=== PATIENT | male | born 1940 | race Caucasian/White ===

== ENCOUNTER 2016-07-31 08:16 | Outpatient (CLI) | payer MEDICARE ==
[2016-07-31 12:17] LABS: CALCIUM 9.2 mg/dL (8.5-10.3); CREATININE 0.7 mg/dL (0.6-1.2); POTASSIUM 4.4 mmol/L (3.5-5.0)
== END 2016-07-31 08:17 | disposition home or self-care (01) ==
LOC: LAB.F 08:16
PROVIDERS: ATTEND Internal Medicine
DX: I10 Essential (primary) hypertension (principal)
CPT/HCPCS: 36415; 80048

== ENCOUNTER 2016-11-14 08:24 | Outpatient (CLI) | payer MEDICARE ==
[2016-11-14 18:02] LABS: CALCIUM 8.9 mg/dL (8.5-10.3); CREATININE 0.9 mg/dL (0.6-1.2); POTASSIUM 4.5 mmol/L (3.5-5.0)
[2016-11-14 18:07] LABS: HEMOGLOBIN A1C 0.69 g/dL
== END 2016-11-14 08:25 | disposition home or self-care (01) ==
LOC: LAB.F 08:24
PROVIDERS: ATTEND Internal Medicine
DX: I10 Essential (primary) hypertension (principal); R73.9 Hyperglycemia, unspecified
CPT/HCPCS: 36415; 80048; 83036

== ENCOUNTER 2017-01-31 11:07 | Day surgery (SDC) | payer MEDICARE ==
[2017-01-31] MEDS ORDERED: LACTATED RINGERS 1,000 ML IV ONE ×2 (11:32→13:56)
[2017-01-31] MEDS ORDERED: fentaNYL 100 MCG/2 ML VIAL IVP ONE (13:28)
[2017-01-31] MEDS ORDERED: MIDAZOLAM 2 MG/2 ML VIAL IVP ONE (13:28)
[2017-01-31 15:02] VITALS: BP 129/63
== END 2017-01-31 11:08 | disposition home or self-care (01) ==
LOC: SDS 11:07
PROVIDERS: ATTEND Surgery
PROC: 0DBK8ZX Excision of Ascending Colon, Via Natural or Artificial Opening Endoscopic, Diagnostic (ICD-10-PCS; principal; 2017-01-31 12:45)
DX: Z12.11 Encounter for screening for malignant neoplasm of colon (principal); D12.2 Benign neoplasm of ascending colon; K57.30 Diverticulosis of large intestine without perforation or abscess without bleeding; Z83.71 Family history of colonic polyps; K64.8 Other hemorrhoids; I10 Essential (primary) hypertension; R73.03 Prediabetes; Z85.51 Personal history of malignant neoplasm of bladder; E78.00 Pure hypercholesterolemia, unspecified; F17.210 Nicotine dependence, cigarettes, uncomplicated
CPT/HCPCS: 45380; J7120

== ENCOUNTER 2017-02-13 08:34 | Outpatient (CLI) | payer MEDICARE | END 2017-02-13 08:35 | disposition home or self-care (01) | LOC: LAB.F 08:34 | PROVIDERS: ATTEND Physician Assistant Medical | DX: R73.01 Impaired fasting glucose (principal); R73.03 Prediabetes ==

== ENCOUNTER 2017-02-13 10:11 | Outpatient (CLI) | payer MEDICARE ==
--- NOTE | 2017-02-14 11:42 | XRAY Report ---
DATE OF SERVICE: 02/13/2017 TWO VIEW CHEST: 02/13/2017 COMPARISON: Frontal chest 12/25/2010. INDICATION: Nicotine addiction. Weight loss. TECHNIQUE: Two views of the chest. FINDINGS There are large lung volumes with flattening of the diaphragms. There is eventration of the right diaphragm. The lungs appear otherwise clear. No pneumothorax or pleural effusion. Mediastinum unremarkable. IMPRESSION: CHRONIC OBSTRUCTIVE PULMONARY DISEASE. NO EVIDENCE OF ACUTE THORACIC PROCESS IN OTHER REGARDS. TD: 02/13/2017 14:32 [email or web address]
== END 2017-02-13 10:12 | disposition home or self-care (01) ==
LOC: DI 10:11
PROVIDERS: ATTEND Physician Assistant Medical
DX: J44.9 Chronic obstructive pulmonary disease, unspecified (principal); R63.4 Abnormal weight loss; R73.01 Impaired fasting glucose; R73.03 Prediabetes
CPT/HCPCS: 71046

== ENCOUNTER 2017-02-14 07:09 | Outpatient (CLI) | payer MEDICARE ==
[2017-02-14 10:23] LABS: ALBUMIN 4.2 g/dL (3.2-5.5); ALBUMIN/GLOBULIN RATIO 1.7 (1.0-2.2); BILIRUBIN,TOTAL 0.9 mg/dL (0.2-1.0); CALCIUM 8.9 mg/dL (8.5-10.3); CREATININE 0.8 mg/dL (0.6-1.2); TOTAL PROTEIN 6.7 g/dL (6.7-8.2)
[2017-02-14 10:33] LABS: BASOPHILS % (AUTO) 0.5 %; EOSINOPHILS # (AUTO) 0.1 10^3/uL (0.0-0.7); EOSINOPHILS % (AUTO) 1.6 %; HGB - HEMOGLOBIN 14.9 g/dL (14.0-18.0); LYMPHOCYTES # (AUTO) 1.6 10^3/uL (1.5-3.5); LYMPHOCYTES % (AUTO) 23.1 %; MEAN CORPUSCULAR HEMOGLOBIN 32.2 pg (27.0-31.0); MEAN CORPUSCULAR HGB CONC 34.2 g/dL (32.0-36.0); MEAN CORPUSCULAR VOLUME 94.2 fL (80.0-94.0); MEAN PLATELET VOLUME 7.7 fL (7.4-11.4); MONOCYTES # (AUTO) 0.7 10^3/uL (0.0-1.0); MONOCYTES % (AUTO) 10.7 %; NEUTROPHILS # (AUTO) 4.4 10^3/uL (1.5-6.6); NEUTROPHILS % (AUTO) 64.1 %; PLT - PLATELET COUNT 233 10^3/uL (130-450); RED BLOOD COUNT 4.62 10^6/uL (4.70-6.10); RED CELL DISTRIBUTION WIDTH 13.8 % (12.0-15.0); WHITE BLOOD COUNT 6.9 x10^3/uL (4.8-10.8)
[2017-02-14 11:17] LABS: HB2 TOTAL 16.4 g/dL; HEMOGLOBIN A1C 0.67 g/dL; HEMOGLOBIN A1C % 5.9 % (4.6-6.2)
== END 2017-02-14 07:10 | disposition home or self-care (01) ==
LOC: LAB.F 07:09
PROVIDERS: ATTEND Physician Assistant Medical
DX: R73.01 Impaired fasting glucose (principal); R73.03 Prediabetes
CPT/HCPCS: 36415; 80053; 83036; 85025

== ENCOUNTER 2017-12-04 07:05 | Outpatient (CLI) | payer MEDICARE | END 2017-12-04 07:06 | disposition home or self-care (01) | LOC: LAB.F 07:05 | PROVIDERS: ATTEND Physician Assistant Medical | DX: Z12.5 Encounter for screening for malignant neoplasm of prostate (principal) | CPT/HCPCS: 36415; G0103; 84153 ==

== ENCOUNTER 2018-02-28 07:30 | Outpatient (CLI) | payer MEDICARE ==
[2018-02-28 10:29] LABS: HGB - HEMOGLOBIN 15.1 g/dL (14.0-18.0); MEAN CORPUSCULAR HEMOGLOBIN 32.4 pg (27.0-31.0); MEAN CORPUSCULAR HGB CONC 34.3 g/dL (32.0-36.0); MEAN CORPUSCULAR VOLUME 94.5 fL (80.0-94.0); MEAN PLATELET VOLUME 7.8 fL (7.4-11.4); RED BLOOD COUNT 4.67 10^6/uL (4.70-6.10); RED CELL DISTRIBUTION WIDTH 14.1 % (12.0-15.0)
[2018-02-28 11:05] LABS: BUN - BLOOD UREA NITROGEN 16 mg/dL (6-20); CARBON DIOXIDE - CO2 33 mmol/L (21-32); CHLORIDE 99 mmol/L (101-111); CHOL/HDL RATIO 2.8 (<5.0); CHOLESTEROL 163 mg/dL; CREATININE 0.8 mg/dL (0.6-1.2); GFR - MDRD 93 (>89); GLUCOSE 138 mg/dL (70-100); HDL CHOLESTEROL 59 mg/dL; LDL CHOLESTEROL,CALCULATED 92 mg/dL; LDL/HDL RATIO 1.6 (<3.6); SODIUM 137 mmol/L (135-145); VLDL CHOLESTEROL 12 mg/dL
[2018-02-28 11:27] LABS: HB2 TOTAL 15.7 g/dL; HEMOGLOBIN A1C 0.73 g/dL; HEMOGLOBIN A1C % 6.4 % (4.6-6.2)
== END 2018-02-28 07:31 | disposition home or self-care (01) ==
LOC: LAB.F 07:30
PROVIDERS: ATTEND Physician Assistant Medical
DX: I10 Essential (primary) hypertension (principal); E78.00 Pure hypercholesterolemia, unspecified; R73.03 Prediabetes
CPT/HCPCS: 36415; 80048; 80061; 83036; 83721; 85025; 85027

== ENCOUNTER 2018-04-04 09:30 | Outpatient (CLI) | payer MEDICARE | END 2018-04-04 09:31 | disposition home or self-care (01) | LOC: NS 09:30 | PROVIDERS: ATTEND Physician Assistant Medical | DX: Z71.3 Dietary counseling and surveillance (principal); E11.9 Type 2 diabetes mellitus without complications | CPT/HCPCS: 97802 ==

== ENCOUNTER 2018-06-13 09:41 | Outpatient (CLI) | payer MEDICARE | END 2018-06-13 09:42 | disposition home or self-care (01) | LOC: NS 09:41 | PROVIDERS: ATTEND Physician Assistant Medical | DX: Z71.3 Dietary counseling and surveillance (principal); E11.9 Type 2 diabetes mellitus without complications | CPT/HCPCS: 97803 ==

== ENCOUNTER 2018-07-14 07:51 | Outpatient (CLI) | payer MEDICARE ==
[2018-07-14 10:58] LABS: CALCIUM 9.2 mg/dL (8.5-10.3); CREATININE 0.7 mg/dL (0.6-1.2)
[2018-07-14 11:15] LABS: HB2 TOTAL 15.7 g/dL; HEMOGLOBIN A1C 0.64 g/dL; HEMOGLOBIN A1C % 5.9 % (4.6-6.2)
== END 2018-07-14 07:52 | disposition home or self-care (01) ==
LOC: LAB.F 07:51
PROVIDERS: ATTEND Physician Assistant Medical
DX: E11.9 Type 2 diabetes mellitus without complications (principal)
CPT/HCPCS: 36415; 80048; 83036

== ENCOUNTER 2018-08-04 14:33 | Outpatient (CLI) | payer MEDICARE ==
[2018-08-04 18:03] LABS: BILIRUBIN,URINE NEGATIVE (NEGATIVE); GLUCOSE, URINE (UA) NEGATIVE (NEGATIVE); KETONES,URINE (UA) NEGATIVE (NEGATIVE); LEUKOCYTE ESTERASE, URINE TRACE (NEGATIVE); NITRITE,URINE NEGATIVE (NEGATIVE); OCCULT BLOOD,URINE TRACE-INTA (NEGATIVE); PH,URINE 7.5 PH (5.0-7.5); PROTEIN,URINE NEGATIVE (NEGATIVE); UROBILINOGEN,URINE 0.2 (NORMAL) E.U./dL (NORMAL)
[2018-08-04 18:12] LABS: BACTERIA,URINE Rare /HPF (None Seen); CLARITY,URINE HAZY (CLEAR); SQUAMOUS EPITHELIAL CELL,UR NONE SEEN (<= Few)
== END 2018-08-04 14:34 | disposition home or self-care (01) ==
LOC: LAB.F 14:33
PROVIDERS: ATTEND Urology
DX: R30.0 Dysuria (principal)
CPT/HCPCS: 81001; 87077; 87086; 87181

== ENCOUNTER 2019-08-03 07:32 | Outpatient (CLI) | payer MEDICARE ==
[2019-08-03 15:36] LABS: BASOPHILS # (AUTO) 0.1 10^3/uL (0.0-0.1); EOSINOPHILS # (AUTO) 0.2 10^3/uL (0.0-0.7); EOSINOPHILS % (AUTO) 4.6 %; HGB - HEMOGLOBIN 14.4 g/dL (14.0-18.0); LYMPHOCYTES # (AUTO) 1.7 10^3/uL (1.5-3.5); LYMPHOCYTES % (AUTO) 33.7 %; MEAN CORPUSCULAR HEMOGLOBIN 31.6 pg (27.0-31.0); MEAN CORPUSCULAR HGB CONC 32.1 g/dL (32.0-36.0); MEAN CORPUSCULAR VOLUME 98.2 fL (80.0-94.0); MEAN PLATELET VOLUME 9.3 fL (7.4-11.4); MONOCYTES # (AUTO) 0.6 10^3/uL (0.0-1.0); MONOCYTES % (AUTO) 12.8 %; NEUTROPHILS # (AUTO) 2.4 10^3/uL (1.5-6.6); NEUTROPHILS % (AUTO) 47.5 %; PLT - PLATELET COUNT 229 10^3/uL (130-450); RED BLOOD COUNT 4.56 10^6/uL (4.70-6.10); RED CELL DISTRIBUTION WIDTH 13.3 % (12.0-15.0)
[2019-08-03 15:52] LABS: HB2 TOTAL 14.9 g/dL; HEMOGLOBIN A1C 0.6 g/dL; HEMOGLOBIN A1C % 5.8 % (4.6-6.2)
[2019-08-03 15:55] LABS: ALBUMIN/GLOBULIN RATIO 1.5 (1.0-2.2); BILIRUBIN,TOTAL 0.9 mg/dL (0.2-1.0); CALCIUM 8.9 mg/dL (8.5-10.3); CREATININE 0.7 mg/dL (0.6-1.2); TOTAL PROTEIN 6.7 g/dL (6.7-8.2)
== END 2019-08-03 07:33 | disposition home or self-care (01) ==
LOC: LAB.S 07:32
PROVIDERS: ATTEND Physician Assistant
DX: I10 Essential (primary) hypertension (principal); E11.9 Type 2 diabetes mellitus without complications
CPT/HCPCS: 36415; 80053; 82043; 83036; 85025

== ENCOUNTER → 2019-08-26 | Outpatient (CLI) | payer MEDICARE | LOC: LAB.WCP 08:00 | PROVIDERS: ATTEND Physician Assistant | DX: R31.9 Hematuria, unspecified (principal) | CPT/HCPCS: 81002 ==

== ENCOUNTER 2020-08-03 07:58 | Outpatient (CLI) | payer MEDICARE ==
[2020-08-03 14:55] LABS: BASOPHILS % (AUTO) 0.4 %; EOSINOPHILS # (AUTO) 0.3 10^3/uL (0.0-0.7); EOSINOPHILS % (AUTO) 4.8 %; HCT - HEMATOCRIT 45.5 % (42.0-52.0); HGB - HEMOGLOBIN 14.9 g/dL (14.0-18.0); LYMPHOCYTES # (AUTO) 1.6 10^3/uL (1.5-3.5); LYMPHOCYTES % (AUTO) 29.2 %; MEAN CORPUSCULAR HEMOGLOBIN 32.7 pg (27.0-31.0); MEAN CORPUSCULAR HGB CONC 32.7 g/dL (32.0-36.0); MEAN PLATELET VOLUME 9.4 fL (7.4-11.4); MONOCYTES # (AUTO) 0.7 10^3/uL (0.0-1.0); MONOCYTES % (AUTO) 12.2 %; NEUTROPHILS # (AUTO) 2.9 10^3/uL (1.5-6.6); NEUTROPHILS % (AUTO) 53.2 %; PLT - PLATELET COUNT 210 10^3/uL (130-450); RED BLOOD COUNT 4.55 10^6/uL (4.70-6.10); RED CELL DISTRIBUTION WIDTH 13.2 % (12.0-15.0); WHITE BLOOD COUNT 5.4 x10^3/uL (4.8-10.8)
[2020-08-03 15:29] LABS: CREATININE,URINE 51.3 mg/dL; MICROALBUM/CREATININE RATIO,UR 23.4 ug/mg (<30.0); MICROALBUMIN,URINE 1.2 mg/dL (0-300.0)
[2020-08-03 15:46] LABS: ALBUMIN 3.9 g/dL (3.2-5.5); ALBUMIN/GLOBULIN RATIO 1.5 (1.0-2.2); ALKALINE PHOSPHATASE 46 IU/L (42-121); ALT ALANINE AMINOTRANSFERASE 15 IU/L (10-60); AST ASPARTATE AMINOTRANSFERASE 15 IU/L (10-42); BILIRUBIN,TOTAL 1.2 mg/dL (0.2-1.0); BUN - BLOOD UREA NITROGEN 16 mg/dL (6-20); CALCIUM 8.9 mg/dL (8.5-10.3); CARBON DIOXIDE - CO2 33 mmol/L (21-32); CHLORIDE 99 mmol/L (101-111); CHOL/HDL RATIO 3.1 (<5.0); CHOLESTEROL 171 mg/dL; CREATININE 0.8 mg/dL (0.6-1.2); GFR - MDRD 93 (>89); GLUCOSE 139 mg/dL (70-100); HDL CHOLESTEROL 56 mg/dL; LDL CHOLESTEROL,CALCULATED 103 mg/dL; LDL/HDL RATIO 1.8 (<3.6); POTASSIUM 4.1 mmol/L (3.5-5.0); SODIUM 139 mmol/L (135-145); TOTAL PROTEIN 6.5 g/dL (6.7-8.2); TRIGLYCERIDES 60 mg/dL; VLDL CHOLESTEROL 12 mg/dL
[2020-08-03 16:37] LABS: ESTIMATED AVERAGE GLUCOSE 131 mg/dL (70-100); HEMOGLOBIN A1c% 6.2 % (4.27-6.07)
== END 2020-08-03 07:59 | disposition home or self-care (01) ==
LOC: LAB.S 07:58
PROVIDERS: ATTEND Physician Assistant
DX: E11.9 Type 2 diabetes mellitus without complications (principal); I10 Essential (primary) hypertension; E78.00 Pure hypercholesterolemia, unspecified
CPT/HCPCS: 36415; 80053; 80061; 82043; 82570; 83036; 83721; 85025

== ENCOUNTER 2020-09-23 17:03 | Inpatient (IN) | payer MEDICARE ==
[~2020-09-23 17:03] MED LIST: methylPREDNISolone SUCCINATE 40 MG/ML VIAL IVP SCH
[2020-09-23] MEDS ORDERED: IPRATROPIUM/ALBUTEROL 3 ML NEB INH STA (17:48)
--- NOTE | 2020-09-23 17:49 | ED Physician Documentation ---
History of Present Illness - Stated complaint Stated Complaint: SWOLLEN LEGS - Chief complaint Chief Complaint: General - History obtained from History obtained from: Patient - Additonal information Additional information: 79-year-old gentleman with history of heart murmur, long history of tobacco use but states no known history of COPD presents with 4 months worth of shortness of breath which was acutely worse today and noted pedal edema today. He was not aware that he was running a fever. He has had both Covid shots. Review of Systems Ten Systems: 10 systems reviewed and negative Constitutional: reports: Reviewed and negative Ears: reports: Reviewed and negative Nose: reports: Reviewed and negative Throat: reports: Reviewed and negative Cardiac: reports: Reviewed and negative PD PAST MEDICAL HISTORY - Past Medical History Cardiovascular: Hypertension Respiratory: None Endocrine/Autoimmune: None GI: None : Other HEENT: Macular degeneration Psych: None Musculoskeletal: None Derm: None - Past Surgical History General: Colonoscopy, Other Ortho: Knee replacement Derm: Skin cancer surgery - Present Medications Home Medications: Ambulatory Orders Medication Instructions Recorded Confirmed Chlorthalidone 12.5 mg ORAL DAILY 04/30/14 01/31/17 Losartan [Cozaar] 100 mg ORAL DAILY 04/30/14 01/31/17 Nortriptyline [Pamelor] 50 mg PO HS 09/09/14 01/31/17 Tamsulosin [Flomax] 0.4 mg PO DAILY 09/09/14 01/31/17 Acetaminophen [Tylenol] 650 mg PO Q6H PRN 09/13/14 01/31/17 Ibuprofen [Motrin] 400 mg PO Q6H PRN 09/13/14 01/30/17 Ascorbic Acid [Vitamin C] 1,000 mg PO DAILY 01/30/17 01/31/17 Cholecalciferol (Vitamin D3) 1,000 unit PO DAILY 01/30/17 01/31/17 [Vitamin D3] Multivitamin/Ferrous Sulfate 18 mg PO DAILY 01/30/17 01/31/17 [One-Daily Oucch-Cos-Lvue Tab] - Allergies Allergies/Adverse Reactions: Allergies Allergy/AdvReac Type Severity Reaction Status Date / Time No Known Drug Allergies Allergy Verified 09/23/20 17:40 PD ED PE NORMAL - Vitals Vital signs reviewed: Yes - General General: Alert and oriented X 3, Other (Labored breathing, tachypneic and quite hypoxic on room air which resolves on a nonrebreather.) - HEENT HEENT: PERRL, EOMI - Neck Neck: Supple, no meningeal sign, No bony TTP - Cardiac Cardiac: RRR, No murmur, Other (No obvious heart murmur, he says he has 1 but may be obscured by labored breathing.) - Respiratory Respiratory: Other (Absent breath sounds at the left base, expiratory wheezes in left upper lobe and on the right) - Abdomen Abdomen: Normal bowel sounds, Soft, Non tender - Back Back: No CVA TTP, No spinal TTP - Derm Derm: Normal color, Warm and dry - Extremities Extremities: No calf tenderness / cord, Other (2+ bilateral pitting pedal edema) - Neuro Neuro: Alert and oriented X 3, Normal speech Results - Vitals Vitals: Vital Signs - 24 hr 09/23/20 09/23/20 09/23/20 17:28 17:59 18:05 Temperature 100.4 C H Heart Rate 68 82 88 Respiratory 20 23 20 Rate Blood Pressure 147/66 H 147/70 H O2 Saturation 59 L 100 09/23/20 09/23/20 18:47 19:29 Temperature 38 C H Heart Rate 78 81 Respiratory 24 26 H Rate Blood Pressure 144/92 H 139/78 H O2 Saturation 99 100 Oxygen O2 Source neb tx - EKG (time done) 1832 Rate: Rate (enter#) (77) Rhythm: NSR Intervals: RBBB, Other (lafb) QRS: Normal Ischemia: Normal ST segments Computer interpretation: Agree with computer - Labs Labs: Laboratory Tests 09/23/20 09/23/20 09/23/20 17:52 17:52 17:52 WBC 7.1 RBC 4.47 L Hgb 14.7 Hct 46.0 MCV 102.9 H MCH 32.9 H MCHC 32.0 RDW 13.8 Plt Count 192 MPV 8.6 Neut # (Auto) 5.4 Lymph # (Auto) 0.9 L Iroquois # (Auto) 0.7 Eos # (Auto) 0.0 Baso # (Auto) 0.0 Absolute Nucleated RBC 0.00 Nucleated RBC % 0.0 D-Dimer 203.5 Sodium Potassium Chloride Carbon Dioxide Anion Gap BUN Creatinine Estimated GFR (MDRD) Glucose Calcium Total Bilirubin AST ALT Alkaline Phosphatase Troponin I High Sens B-Natriuretic Peptide 528 H Total Protein Albumin Globulin Albumin/Globulin Ratio Lipase Nasal Adenovirus (PCR) Nasal B. parapertussis DNA (PCR) Nasal Coronavir 229E PCR Nasal Coronavir HKU1 PCR Nasal Coronavir NL63 PCR Nasal Coronavir OC43 PCR Nasal Enterovir/Rhinovir PCR Nasal Influenza B PCR Nasal Influenza A PCR Nasal Parainfluen 1 PCR Nasal Parainfluen 2 PCR Nasal Parainfluen 3 PCR Nasal Parainfluen 4 PCR Nasal RSV (PCR) Nasal B.pertussis DNA PCR Nasal C.pneumoniae (PCR) Juan Ramon Human Metapneumo PCR Nasal M.pneumoniae (PCR) Nasal SARS-CoV-2 (PCR) 09/23/20 09/23/20 09/23/20 17:52 17:52 18:00 WBC RBC Hgb Hct MCV MCH MCHC RDW Plt Count MPV Neut # (Auto) Lymph # (Auto) Iroquois # (Auto) Eos # (Auto) Baso # (Auto) Absolute Nucleated RBC Nucleated RBC % D-Dimer Sodium 141 Potassium 4.2 Chloride 98 L Carbon Dioxide 34 H Anion Gap 9.0 BUN 23 H Creatinine 0.8 Estimated GFR (MDRD) 93 Glucose 147 H Calcium 8.8 Total Bilirubin 1.0 AST 15 ALT 17 Alkaline Phosphatase 58 Troponin I High Sens 21.3 H* B-Natriuretic Peptide Total Protein 6.6 L Albumin 3.9 Globulin 2.7 Albumin/Globulin Ratio 1.4 Lipase 16 L Nasal Adenovirus (PCR) NOT DETECTED Nasal B. parapertussis DNA (PCR) NOT DETECTED Nasal Coronavir 229E PCR NOT DETECTED Nasal Coronavir HKU1 PCR NOT DETECTED Nasal Coronavir NL63 PCR NOT DETECTED Nasal Coronavir OC43 PCR NOT DETECTED Nasal Enterovir/Rhinovir PCR NOT DETECTED Nasal Influenza B PCR NOT DETECTED Nasal Influenza A PCR NOT DETECTED Nasal Parainfluen 1 PCR NOT DETECTED Nasal Parainfluen 2 PCR NOT DETECTED Nasal Parainfluen 3 PCR NOT DETECTED Nasal Parainfluen 4 PCR NOT DETECTED Nasal RSV (PCR) NOT DETECTED Nasal B.pertussis DNA PCR NOT DETECTED Nasal C.pneumoniae (PCR) NOT DETECTED Juan Ramon Human Metapneumo PCR NOT DETECTED Nasal M.pneumoniae (PCR) NOT DETECTED Nasal SARS-CoV-2 (PCR) NOT DETECTED - Rads (name of study) 1v chest Radiology: EMP read contemporaneously (NAD) PD MEDICAL DECISION MAKING - ED course ED course: 79-year-old gentleman with no prior diagnosis of COPD but longstanding smoker presents with shortness of breath and profound hypoxemia down to 59% on room air. Lungs sound like COPD versus pneumonia. Chest x-ray fairly clear but he does seem somewhat dry. He became febrile during his stay but he felt better after nebs here. Spoke with Dr. Castle for admission at 7:46 PM. Given the fever we will go ahead and culture him and give him Rocephin and Zithromax for community-acquired pneumonia versus COPD flare with fever. - Critical Care Time(min): 35 Time Includes: Direct patient care, Review records, Reassess patient, Document care, Coordinate care, Medical consult Data interpretation: Labs, Pulse ox Procedures included in critical care time: Peripheral IV Procedures excluded from critical care time: EKG Departure - Departure Disposition: 66 [facility] DC/Xfer Clinical Impression: COPD exacerbation, Hypoxemia Condition: Serious
[2020-09-23 17:59] LABS: BASOPHILS % (AUTO) 0.4 %; EOSINOPHILS % (AUTO) 0.1 %; HGB - HEMOGLOBIN 14.7 g/dL (14.0-18.0); LYMPHOCYTES # (AUTO) 0.9 10^3/uL (1.5-3.5); LYMPHOCYTES % (AUTO) 12.1 %; MEAN CORPUSCULAR HEMOGLOBIN 32.9 pg (27.0-31.0); MEAN CORPUSCULAR VOLUME 102.9 fL (80.0-94.0); MEAN PLATELET VOLUME 8.6 fL (7.4-11.4); MONOCYTES # (AUTO) 0.7 10^3/uL (0.0-1.0); MONOCYTES % (AUTO) 9.9 %; NEUTROPHILS # (AUTO) 5.4 10^3/uL (1.5-6.6); NEUTROPHILS % (AUTO) 76.7 %; PLT - PLATELET COUNT 192 10^3/uL (130-450); RED BLOOD COUNT 4.47 10^6/uL (4.70-6.10); RED CELL DISTRIBUTION WIDTH 13.8 % (12.0-15.0); WHITE BLOOD COUNT 7.1 x10^3/uL (4.8-10.8)
[2020-09-23 18:12] LABS: ALBUMIN 3.9 g/dL (3.2-5.5); ALBUMIN/GLOBULIN RATIO 1.4 (1.0-2.2); CALCIUM 8.8 mg/dL (8.5-10.3); CREATININE 0.8 mg/dL (0.6-1.2); POTASSIUM 4.2 mmol/L (3.5-5.0); TOTAL PROTEIN 6.6 g/dL (6.7-8.2)
--- NOTE | 2020-09-23 18:25 | XRAY Report ---
PROCEDURE: Chest 1 View X-Ray INDICATIONS: Chest Pain TECHNIQUE: One view of the chest was acquired. COMPARISON: 02/13/2017 FINDINGS: Surgical changes and devices: None. Lungs and pleura: No pleural effusions or pneumothorax. Calcified granuloma in the right lung apex a gain noted. Mediastinum: Mediastinal contours appear normal. Heart size is normal. Bones and chest wall: No suspicious bony lesions. Overlying soft tissues appear unremarkable. IMPRESSION: No acute cardiopulmonary process demonstrated radiographically. Reviewed by: Shiraz Stevenson MD on 09/23/2020 6:24 PM PDT Approved by: Shiraz Stevenson MD on 09/23/2020 6:24 PM PDT Station ID: [id number]
[2020-09-23 18:59] LABS: B. PARAPERTUSSIS- RESP PCR PAN NOT DETECTED; B. PERTUSSIS- RESP PCR PANEL NOT DETECTED; C. PNEUMONIAE- RESP PCR PANEL NOT DETECTED; CORONAVIRUS 229E-RESP PCR NOT DETECTED; CORONAVIRUS HKU1-RESP PCR NOT DETECTED; CORONAVIRUS NL63-RESP PCR NOT DETECTED; CORONAVIRUS OC43-RESP PCR NOT DETECTED; HUMAN METAPNEUMOVIRUS NOT DETECTED; INFLUENZA A- RESP PCR PANEL NOT DETECTED; INFLUENZA B - RESP PCR PANEL NOT DETECTED; M. PNEUMONIAE- RESP PCR PANEL NOT DETECTED; PARAINFLUENZA VIRUS 1 NOT DETECTED; PARAINFLUENZA VIRUS 2 NOT DETECTED; PARAINFLUENZA VIRUS 3 NOT DETECTED; PARAINFLUENZA VIRUS 4 NOT DETECTED; RHINOVIRUS/ENTEROVIRUS NOT DETECTED; RSV- RESP PCR PANEL NOT DETECTED; SARS-CoV-2 -RESP PCR PANEL NOT DETECTED
[2020-09-23] MEDS ORDERED: ALBUTEROL NEB 2.5 MG/3 ML INH STA (19:03)
[2020-09-23] MEDS ORDERED: methylPREDNISolone SUCCINATE 125 MG/2 ML VIAL IVP STA (19:03)
[2020-09-23] MEDS ORDERED: ALBUTEROL NEB 2.5 MG/3 ML INH ONE (19:31)
[2020-09-23] MEDS ORDERED: ACETAMINOPHEN 325 MG TABLET PO STA (19:32)
[2020-09-23] MEDS ORDERED: SODIUM CHLORIDE 0.9% 1,000 ML IV STA (19:45)
[2020-09-23] MEDS ORDERED: AZITHROMYCIN INJ 500 MG in SODIUM CHLORIDE 0.9% 250 ML IV STA (19:45)
[2020-09-23] MEDS ORDERED: ACETAMINOPHEN 325 MG TABLET PO PRN (19:46)
[2020-09-23] MEDS ORDERED: oxyCODONE 5 MG TABLET PO PRN (19:46)
[2020-09-23] MEDS ORDERED: ONDANSETRON 4 MG/2 ML VIAL IVP PRN (19:46)
--- NOTE | 2020-09-23 19:53 | HISTORY & PHYSICAL EXAMINATION ---
Chief Complaint - Chief Complaint Chief Complaint: dyspnea History of Present Illness - Admitted From Admitted From:: [facility] ED - History Obtained From Records Reviewed: yes History obtained from: patient - History of Present Illness HPI Comment/Other: Patient is an 79-year-old male who presented to the ED with dyspnea. He says he has been dyspneic for 3 to 4 months but his symptoms got significantly worse over the past 2 days such that he was having a difficult time catching his breath. Upon arrival to the ED he had a documented oxygen saturation of 59% on room air. He required 5 L of supplemental oxygen to improve to the 90s. He had diminished lung sounds on auscultation and a wheeze. He was also noted to have a temperature of 38 C. He denied chest pain, abdominal pain, nausea or vomiting. He is being admitted for further treatment. History - Past Medical History Cardiovascular: reports: Hypertension Respiratory: reports: None Endocrine/Autoimmune: reports: None GI: reports: None : reports: Other HEENT: reports: Macular degeneration Psych: reports: None Musculoskeletal: reports: None Derm: reports: None MRSA Hx?: No - Past Surgical History General: reports: Colonoscopy, Other Ortho: reports: Knee replacement Derm: reports: Skin cancer surgery - Family & Social History Family History Comment/Other: He denies any significant family history. Social History Notes: He resides at home with his significant other. He is independent of activities of daily living. He smokes 1 pack of cigarettes daily. He has been smoking for about 60 years. He denies alcohol or recrea tional substance use. - POLST Patient has POLST: No POLST Status: Full Code Meds/Allgy - Home Medications Home Medications: Ambulatory Orders Medication Instructions Recorded Confirmed Chlorthalidone 12.5 mg ORAL DAILY 04/30/14 09/23/20 Losartan [Cozaar] 100 mg ORAL DAILY 04/30/14 09/23/20 Nortriptyline [Pamelor] 50 mg PO HS 09/09/14 09/23/20 - Allergies Allergies/Adverse Reactions: Allergies Allergy/AdvReac Type Severity Reaction Status Date / Time No Known Drug Allergies Allergy Verified 09/23/20 17:40 Review of Systems - Constitutional Constitutional: reports: Fever. denies: Fatigue, Weakness - Eyes Eyes: denies: Pain - Ears, Nose & Throat Ears, Nose & Throat: denies: Ear pain - Cardiovascular Cariovascular: reports: Edema. denies: Irregular heart rate, Chest pain, Lightheadedness - Respiratory Respiratory: reports: Wheezing, SOB at rest. denies: Cough, Sputum production - Gastrointestinal Gastrointestinal: denies: Abdominal pain, Abdominal distention, Constipation, Diarrhea, Nausea, Vomiting, Reflux/heartburn - Genitourinary Genitourinary: denies: Dysuria, Frequency, Urgency, Hematuria - Musculoskeletal Musculoskeletal: denies: Muscle pain, Back pain, Muscle aches, Stiffness - Integumentary Integumentary: denies: Rash, Pruritis, Lesions - Neurological Neurological: denies: Focal weakness - Psychiatric Psychiatric: denies: Depression, Anxiety - Endocrine Endocrine: denies: Polyuria, Polydypsia - Hematologic/Lymphatic Hematologic/Lymphatic: denies: Anemia, Bruising, Petechiae Prior Level of Functionality: He is independent of activities of daily living. Exam - Vital Signs Vital Signs: Vital Signs x48h Temp Pulse Resp BP Pulse Ox 09/23/20 19:29 38 C H 81 26 H 139/78 H 100 09/23/20 18:47 78 24 144/92 H 99 09/23/20 18:05 88 20 09/23/20 17:59 82 23 147/70 H 100 09/23/20 17:28 100.4 C H 68 20 147/66 H 59 L - Physical Exam General Appearance: positive: No acute distress, Alert, Other (disheveled) Eyes Bilateral: positive: PERRL, EOMI ENT: positive: No signs of dehydration Neck: positive: No JVD, Trachea midline Respiratory: positive: Wheezes, Other (diminished breath sounds) Cardiovascular: positive: Regular rate & rhythm Abdomen: positive: Non-tender, No organomegaly, Nml bowel sounds, No distention. negative: Guarding, Rebound Back: positive: Nml inspection Skin: positive: Color nml, No rash, Warm, Dry Extremities: positive: Non-tender, Full ROM, Pedal edema (1+) Neurologic/Psychiatric: positive: Oriented x3, Mood/affect nml Conclusion/Plan - Problem List (1) COPD exacerbation Conclusion/Plan: Patient placed on supplemental oxygen via oxygen mask. DuoNeb every 3 hours as needed. Budesonide and Perforomist twice daily. Solu-Medrol 80 mg IV 3 times daily. (2) Acute respiratory failure with hypoxemia Conclusion/Plan: Likely secondary to exacerbation of COPD. Patient is on supplemental oxygen via oxygen mask. Anticipating improvement with treatment of COPD. Patient is receiving IV Solu-Medrol 3 times daily, Duoneb, Perforomist and bud esonide (3) Fever Conclusion/Plan: Patient had a temperature of 38 C. Cannot rule out pneumonia. As a result blood cultures were drawn and patient was started on Rocephin and azithromycin. (4) Elevated brain natriuretic peptide (BNP) level Conclusion/Plan: BNP was 528. Patient has +1 to +2 lower extremity edema Will obtain a 2D echo on 09/26/20 if patient is in the hospital Initial troponin 21. Will trend X2 more. (5) Hypertension Conclusion/Plan: Stable. Will continue patient's chlorthalidone and losartan once verified - Lab Results Fish Bones: 09/23/20 17:52 09/23/20 17:52 Core Measures - Anticipated LOS I expect patient to be DC'd or transferred within 96 hours.: Yes - DVT/VTE - Prophylaxis VTE/DVT Device ordered at admit?: Yes VTE/DVT Prophylaxis med ordered at admit?: Yes
[2020-09-23] MEDS ORDERED: cefTRIAXone 2 GM in SODIUM CHLORIDE 0.9% MINIBAG 100 ML IV STA (19:54)
[2020-09-23] MEDS ORDERED: cefTRIAXone 2 GM VIAL ONE (20:00)
[2020-09-24] MEDS: SODIUM CHLORIDE FLUSH 0.9% 10 ML SYRINGE IVP SCH ×3 (00:28→16:30)
[2020-09-24] MEDS: SODIUM CHLORIDE FLUSH 0.9% 10 ML SYRINGE IVP PRN (05:45)
[2020-09-24] MEDS: methylPREDNISolone SUCCINATE 40 MG/ML VIAL IVP SCH ×3 (05:46→21:14)
[2020-09-24 06:19] LABS: BASOPHILS % (AUTO) 0.4 %; HCT - HEMATOCRIT 48.2 % (42.0-52.0); HGB - HEMOGLOBIN 14.9 g/dL (14.0-18.0); LYMPHOCYTES # (AUTO) 0.5 10^3/uL (1.5-3.5); LYMPHOCYTES % (AUTO) 8.1 %; MEAN CORPUSCULAR HEMOGLOBIN 32.6 pg (27.0-31.0); MEAN CORPUSCULAR HGB CONC 30.9 g/dL (32.0-36.0); MEAN CORPUSCULAR VOLUME 105.5 fL (80.0-94.0); MEAN PLATELET VOLUME 9.1 fL (7.4-11.4); MONOCYTES # (AUTO) 0.1 10^3/uL (0.0-1.0); MONOCYTES % (AUTO) 2.2 %; NEUTROPHILS # (AUTO) 4.9 10^3/uL (1.5-6.6); NEUTROPHILS % (AUTO) 87.5 %; PLT - PLATELET COUNT 174 10^3/uL (130-450); RED BLOOD COUNT 4.57 10^6/uL (4.70-6.10); RED CELL DISTRIBUTION WIDTH 13.9 % (12.0-15.0); WHITE BLOOD COUNT 5.6 x10^3/uL (4.8-10.8)
[2020-09-24 06:30] LABS: CALCIUM 8.5 mg/dL (8.5-10.3); CREATININE 0.7 mg/dL (0.6-1.2); POTASSIUM 4.5 mmol/L (3.5-5.0)
[2020-09-24] MEDS: BUDESONIDE 0.5 MG/2 ML NEB INH SCH ×2 (07:24→20:59)
[2020-09-24] MEDS: FORMOTEROL FUMARATE NEB 20 MCG/2 ML INH SCH ×2 (07:24→20:57)
[2020-09-24] MEDS: ENOXAPARIN 40 MG/0.4 ML SYRINGE SUBQ SCH (08:26)
[2020-09-24] MEDS: LOSARTAN 50 MG TABLET PO SCH (08:26)
--- NOTE | 2020-09-24 08:45 | PHARMACY PROGRESS NOTE ---
- Best Possible Medication History Admit Date and Time: 09/23/201945 Processed by: Nursing Medication History completed: Yes As the person ultimately responsible for medication therapy, providers are able to order a medication from an existing home medication list in [facility] via the "Reconcile Routine" prior to Confirmation of that medication by support architect. Such practice is discouraged except when the physician, in their clinical judgment, deems that a medical need exists for a medication without regard to previous use.
[2020-09-24] MEDS ORDERED: cefTRIAXone 2 GM in SODIUM CHLORIDE 0.9% MINIBAG 100 ML IV SCH (09:00)
--- NOTE | 2020-09-24 19:05 | PROVIDER PROGRESS NOTE ---
Assessment/Plan - Problem List (1) COPD exacerbation Assessment/Plan: Improved breath sounds on auscultation today. Wheezing is significantly decreased. Patient was on 4 L of oxygen via nasal cannula. Will decrease to 2 L. Continue Solu-Medrol 80 mg IV 3 times daily Continue budesonide and Perforomist twice daily. Continue DuoNeb every 3 hours as needed. (2) Acute respiratory failure with hypoxemia Assessment/Plan: Improved breath sounds on auscultation today. Wheezing is significantly decreased. Patient was on 4 L of oxygen via nasal cannula. Will decrease to 2 L. Continue Solu-Medrol 80 mg IV 3 times daily Continue budesonide and Perforomist twice daily. Continue DuoNeb every 3 hours as needed. (3) Fever Assessment/Plan: Patient has been afebrile throughout today. Continue Rocephin and azithromycin. (4) Elevated brain natriuretic peptide (BNP) level Assessment/Plan: Will obtain a 2D echo on 09/26/20 if patient is in the hospital (5) Hypertension Assessment/Plan: Stable. On losartan 50 mg p.o. daily. - Current Meds Current Meds: Current Medications Generic Name Dose Route Start Last Admin Trade Name Freq PRN Reason Stop Dose Admin Acetaminophen 650 mg 09/23/20 19:46 09/24/20 16:30 Acetaminophen 325 Mg Tablet PO 650 mg Q4HR PRN Administration Pain 1 to 4 Budesonide 0.5 mg 09/24/20 07:00 09/24/20 07:24 Budesonide 0.5 Mg/2 Ml Neb INH 0.5 mg RTBID BEVERLEY Administration Enoxaparin Sodium 40 mg 09/24/20 09:00 09/24/20 08:26 Enoxaparin 40 Mg/0.4 Ml Syringe SUBQ 40 mg DAILY BEVERLEY Administration Formoterol Fumarate 20 mcg 09/24/20 07:00 09/24/20 07:24 Formoterol Fumarate Neb 20 Mcg/2 Ml INH 20 mcg RTBID BEVERLEY Administration Losartan Potassium 50 mg 09/24/20 09:00 09/24/20 08:26 Losartan 50 Mg Tablet PO 50 mg DAILY BEVERLEY Administration Methylprednisolone 80 mg 09/24/20 06:00 09/24/20 13:48 Methylprednisolone Succinate 40 Mg/Ml Vial IVP 80 mg TID BEVERLEY Administration Sodium Chloride 10 ml 09/23/20 19:46 09/24/20 05:45 Sodium Chloride Flush 0.9% 10 Ml Syringe IVP 10 ml PRN PRN Administration NEEDED PER PROVIDER ORDERS Sodium Chloride 10 ml 09/24/20 01:00 09/24/20 16:30 Sodium Chloride Flush 0.9% 10 Ml Syringe IVP 10 ml 0100,0900,1700 BEVERLEY Administration - Lab Result Fish Bone Diagrams: 09/24/20 05:40 09/24/20 05:40 - Additional Planning My Orders: My Active Orders 09/23/20 19:46 Activity Orders [RC] Q2HR IO [RC] IOSHIFT Initiate Bowel Care Protocol [RC] .protocol Initiate Line Care Protocol [RC] QSHIFT Initiate Personal Care Protoco [RC] .protocol Oxygen Therapy [RC] .PRN Telemetry- [RC] Q4HR Vital Signs [RC] Q4HR Acetaminophen [Tylenol] 650 mg PO Q4HR PRN Ondansetron Inj [Zofran Inj] 4 mg IVP Q6HR PRN Sodium Chloride Flush 0.9% [Normal Saline Flush 0.9%] 10 ml IVP PRN PRN oxyCODONE [Roxicodone] 5 mg PO Q4HR PRN Code Status [OTHERS] Routine Condition of Patient [OTHERS] Routine DVT Prophylaxis [OTHERS] Routine 09/23/20 19:48 SCDs [RC] QSHIFT 09/23/20 19:50 Ipratropium/Albuterol [Duoneb] 3 ml INH Q4HR PRN 09/24/20 01:00 Sodium Chloride Flush 0.9% [Normal Saline Flush 0.9%] 10 ml IVP 0100,0900,1700 09/24/20 06:00 methylPREDNISolone SUCCINATE [SOLU-Medrol (40MG VIAL)] 80 mg IVP TID 09/24/20 07:00 Budesonide [Pulmicort] 0.5 mg INH RTBID Formoterol Fumarate [Perforomist] 20 mcg INH RTBID 09/24/20 09:00 Enoxaparin [Lovenox] 40 mg SUBQ DAILY 09/24/20 20:00 Azithromycin Inj [Zithromax Inj] 500 mg Sodium Chloride 0.9% [Normal Saline 0.9%] 250 ml IV DAILY@199909/24/20 21:00 cefTRIAXone [Rocephin] 1 gm Sodium Chloride 0.9% Minibag [Normal Saline 0.9% Minibag] 100 ml IV DAILY@2100 09/25/20 05:00 BMP - BASIC METABOLIC PANEL [CHEM] DAILYLAB CBC - COMP BLD CT W/AUTO DIFF [HEME] DAILYLAB 09/26/20 05:00 BMP - BASIC METABOLIC PANEL [CHEM] DAILYLAB CBC - COMP BLD CT W/AUTO DIFF [HEME] DAILYLAB 09/27/20 05:00 BMP - BASIC METABOLIC PANEL [CHEM] DAILYLAB CBC - COMP BLD CT W/AUTO DIFF [HEME] DAILYLAB 09/28/20 05:00 BMP - BASIC METABOLIC PANEL [CHEM] DAILYLAB CBC - COMP BLD CT W/AUTO DIFF [HEME] DAILYLAB Subjective - Subjective Patient Reports: Other (Resting comfortably in bed. He was on 4 L of oxygen via nasal cannula with oxygen saturation of 93 to 94%. He reports improved air movement with inspiration and expiration. He denied any other complains.) Objective Vital Signs: Vital Signs - 24 hr 09/23/20 09/23/20 09/23/20 19:29 20:19 20:55 Temperature 38 C H 37.2 C Heart Rate 81 87 Heart Rate [ 87 Radial] Respiratory 26 H 24 20 Rate Blood Pressure 139/78 H 142/75 H Blood Pressure 152/68 H [Left Brachial artery] O2 Saturation 100 97 92 09/23/20 09/24/20 09/24/20 21:45 00:24 04:38 Temperature 37.0 C 37.0 C Heart Rate Heart Rate [ 62 77 Radial] Respiratory 20 16 Rate Blood Pressure Blood Pressure 130/59 L 136/59 H [Left Brachial artery] O2 Saturation 92 96 98 09/24/20 09/24/20 09/24/20 07:28 08:38 13:00 Temperature 37.1 C 37.0 C Heart Rate 74 Heart Rate [ 82 72 Radial] Respiratory 12 20 20 Rate Blood Pressure Blood Pressure 133/58 H 117/56 L [Left Brachial artery] O2 Saturation 94 93 09/24/20 16:25 Temperature 37.4 C Heart Rate Heart Rate [ 72 Radial] Respiratory 16 Rate Blood Pressure Blood Pressure 126/51 L [Left Brachial artery] O2 Saturation 94 Oxygen O2 Source Nasal cannula I&O (Last 24 Hrs): Intake and Output Totals x24h 09/22/20 09/23/20 09/24/20 23:59 23:59 23:59 Intake Total 1400 1960 Output Total 1050 Balance 1400 910 General: Alert, Oriented x3, No acute distress HEENT: PERRLA, EOMI Neck: Supple, No JVD Neuro: Alert, Non Focal, Oriented Times 3 Cardiovascular: Regular rate, No murmurs Respiratory: Wheezes (mild), Other (improved air movement in lungs with breathing) Abdomen: Normal bowel sounds, Soft Extremities: No clubbing, Other (trace to +1 edema) Skin: No rashes, No breakdown, No significant lesion - Results Results: Laboratory Results WBC 5.6 x10^3/uL (4.8-10.8) 09/24/20 05:40 RBC 4.57 10^6/uL (4.70-6.10) L 09/24/20 05:40 Hgb 14.9 g/dL (14.0-18.0) 09/24/20 05:40 Hct 48.2 % (42.0-52.0) 09/24/20 05:40 MCV 105.5 fL (80.0-94.0) H 09/24/20 05:40 MCH 32.6 pg (27.0-31.0) H 09/24/20 05:40 MCHC 30.9 g/dL (32.0-36.0) L 09/24/20 05:40 RDW 13.9 % (12.0-15.0) 09/24/20 05:40 Plt Count 174 10^3/uL (130-450) 09/24/20 05:40 MPV 9.1 fL (7.4-11.4) 09/24/20 05:40 Neut # (Auto) 4.9 10^3/uL (1.5-6.6) 09/24/20 05:40 Lymph # (Auto) 0.5 10^3/uL (1.5-3.5) L 09/24/20 05:40 Kern # (Auto) 0.1 10^3/uL (0.0-1.0) 09/24/20 05:40 Eos # (Auto) 0.0 10^3/uL (0.0-0.7) 09/24/20 05:40 Baso # (Auto) 0.0 10^3/uL (0.0-0.1) 09/24/20 05:40 Absolute Nucleated RBC 0.00 x10^3/uL 09/24/20 05:40 Nucleated RBC % 0.0 /100WBC 09/24/20 05:40 D-Dimer 203.5 ng/mL (200.0-255.0) 09/23/20 17:52 Sodium 143 mmol/L (135-145) 09/24/20 05:40 Potassium 4.5 mmol/L (3.5-5.0) 09/24/20 05:40 Chloride 100 mmol/L (101-111) L 09/24/20 05:40 Carbon Dioxide 34 mmol/L (21-32) H 09/24/20 05:40 Anion Gap 9.0 (6-13) 09/24/20 05:40 BUN 23 mg/dL (6-20) H 09/24/20 05:40 Creatinine 0.7 mg/dL (0.6-1.2) 09/24/20 05:40 Estimated GFR (MDRD) 109 (>89) 09/24/20 05:40 Glucose 183 mg/dL (70-100) H 09/24/20 05:40 Calcium 8.5 mg/dL (8.5-10.3) 09/24/20 05:40 Total Bilirubin 1.0 mg/dL (0.2-1.0) 09/23/20 17:52 AST 15 IU/L (10-42) 09/23/20 17:52 ALT 17 IU/L (10-60) 09/23/20 17:52 Alkaline Phosphatase 58 IU/L (42-121) 09/23/20 17:52 Troponin I High Sens 18.7 ng/L (2.3-19.7) 09/24/20 05:40 B-Natriuretic Peptide 601 pg/mL (5-100) H 09/24/20 05:40 Total Protein 6.6 g/dL (6.7-8.2) L 09/23/20 17:52 Albumin 3.9 g/dL (3.2-5.5) 09/23/20 17:52 Globulin 2.7 g/dL (2.1-4.2) 09/23/20 17:52 Albumin/Globulin Ratio 1.4 (1.0-2.2) 09/23/20 17:52 Lipase 16 U/L (22-51) L 09/23/20 17:52 Nasal Adenovirus (PCR) NOT DETECTED 09/23/20 18:00 Nasal B. parapertussis DNA (PCR) NOT DETECTED 09/23/20 18:00 Nasal Coronavir 229E PCR NOT DETECTED 09/23/20 18:00 Nasal Coronavir HKU1 PCR NOT DETECTED 09/23/20 18:00 Nasal Coronavir NL63 PCR NOT DETECTED 09/23/20 18:00 Nasal Coronavir OC43 PCR NOT DETECTED 09/23/20 18:00 Nasal Enterovir/Rhinovir PCR NOT DETECTED 09/23/20 18:00 Nasal Influenza B PCR NOT DETECTED 09/23/20 18:00 Nasal Influenza A PCR NOT DETECTED 09/23/20 18:00 Nasal Parainfluen 1 PCR NOT DETECTED 09/23/20 18:00 Nasal Parainfluen 2 PCR NOT DETECTED 09/23/20 18:00 Nasal Parainfluen 3 PCR NOT DETECTED 09/23/20 18:00 Nasal Parainfluen 4 PCR NOT DETECTED 09/23/20 18:00 Nasal RSV (PCR) NOT DETECTED 09/23/20 18:00 Nasal B.pertussis DNA PCR NOT DETECTED 09/23/20 18:00 Nasal C.pneumoniae (PCR) NOT DETECTED 09/23/20 18:00 Juan Ramon Human Metapneumo PCR NOT DETECTED 09/23/20 18:00 Nasal M.pneumoniae (PCR) NOT DETECTED 09/23/20 18:00 Nasal SARS-CoV-2 (PCR) NOT DETECTED 09/23/20 18:00 - Procedures Procedures: Procedures EXCISION OF ASCENDING COLON, ENDO, DIAGN (01/31/17) INJECT CA CHEMOTHER NEC (09/13/14) OTHER INSTILLATION (09/13/14) TU DESTRUC BLADD LES NEC (09/13/14) ABX Reporting Has patient been on IV antibiotics over the past 48 hours?: Yes
[2020-09-24] MEDS: AZITHROMYCIN INJ 500 MG in SODIUM CHLORIDE 0.9% 250 ML IV SCH (20:15)
[2020-09-24] MEDS: NORTRIPTYLINE 25 MG CAPSULE PO SCH (20:20)
[2020-09-24] MEDS: IPRATROPIUM/ALBUTEROL 3 ML NEB INH PRN (20:58)
[2020-09-24] MEDS: cefTRIAXone 1 GM in SODIUM CHLORIDE 0.9% MINIBAG 100 ML IV SCH (21:14)
[2020-09-25] MEDS: SODIUM CHLORIDE FLUSH 0.9% 10 ML SYRINGE IVP SCH ×4 (01:04→23:50)
[2020-09-25] MEDS: methylPREDNISolone SUCCINATE 40 MG/ML VIAL IVP SCH ×3 (06:00→20:59)
[2020-09-25] MEDS: SODIUM CHLORIDE FLUSH 0.9% 10 ML SYRINGE IVP PRN ×2 (06:00→13:36)
[2020-09-25] MEDS: FORMOTEROL FUMARATE NEB 20 MCG/2 ML INH SCH (07:53)
[2020-09-25] MEDS: BUDESONIDE 0.5 MG/2 ML NEB INH SCH (07:53)
[2020-09-25 08:33] LABS: BASOPHILS % (AUTO) 0.1 %; HCT - HEMATOCRIT 46.9 % (42.0-52.0); HGB - HEMOGLOBIN 14.9 g/dL (14.0-18.0); LYMPHOCYTES # (AUTO) 0.6 10^3/uL (1.5-3.5); LYMPHOCYTES % (AUTO) 6.5 %; MEAN CORPUSCULAR HGB CONC 31.8 g/dL (32.0-36.0); MEAN CORPUSCULAR VOLUME 103.8 fL (80.0-94.0); MEAN PLATELET VOLUME 9.4 fL (7.4-11.4); MONOCYTES # (AUTO) 0.4 10^3/uL (0.0-1.0); NEUTROPHILS % (AUTO) 88.8 %; PLT - PLATELET COUNT 191 10^3/uL (130-450); RED BLOOD COUNT 4.52 10^6/uL (4.70-6.10); RED CELL DISTRIBUTION WIDTH 13.8 % (12.0-15.0); WHITE BLOOD COUNT 9.1 x10^3/uL (4.8-10.8)
[2020-09-25] MEDS: ENOXAPARIN 40 MG/0.4 ML SYRINGE SUBQ SCH (08:37)
[2020-09-25] MEDS: LOSARTAN 50 MG TABLET PO SCH (08:38)
[2020-09-25 08:47] LABS: CREATININE 0.8 mg/dL (0.6-1.2); POTASSIUM 4.7 mmol/L (3.5-5.0)
--- NOTE | 2020-09-25 19:23 | PROVIDER PROGRESS NOTE ---
Assessment/Plan - Problem List (1) COPD exacerbation Assessment/Plan: Patient resting status continues to improve daily. Wheezing is significantly decreased. Patient is currently on 2 L of oxygen via nasal cannula. Oxygen saturations around 93%. Continue Solu-Medrol 80 mg IV 3 times daily Continue budesonide and Perforomist twice daily. Continue DuoNeb every 3 hours as needed. Mucinex 600 mg p.o. twice daily added. And oxygen desaturation study ordered for the morning Anticipating discharge home tomorrow. (2) Acute respiratory failure with hypoxemia Assessment/Plan: Patient resting status continues to improve daily. Wheezing is significantly decreased. Patient is currently on 2 L of oxygen via nasal cannula. Oxygen saturations around 93%. Continue Solu-Medrol 80 mg IV 3 times daily Continue budesonide and Perforomist twice daily. Continue DuoNeb every 3 hours as needed. Mucinex 600 mg p.o. twice daily added. And oxygen desaturation study ordered for the morning Anticipating discharge home tomorrow. (3) Fever Assessment/Plan: Patient continues to be afebrile for the past 2 days. White blood cell count is normal at 9.1 and blood cultures are no growth to date. Patient will complete azithromycin tonight. We will discontinue Rocephin tomorrow. (4) Elevated brain natriuretic peptide (BNP) level Assessment/Plan: 2D echocardiogram ordered for tomorrow morning. (5) Hypertension Assessment/Plan: Stable. On losartan 50 mg p.o. daily. - Current Meds Current Meds: Current Medications Generic Name Dose Route Start Last Admin Trade Name Freq PRN Reason Stop Dose Admin Acetaminophen 650 mg 09/23/20 19:46 09/24/20 16:30 Acetaminophen 325 Mg Tablet PO 650 mg Q4HR PRN Administration Pain 1 to 4 Albuterol/Ipratropium 3 ml 09/23/20 19:50 09/24/20 20:58 Ipratropium/Albuterol 3 Ml Neb INH 3 ml Q4HR PRN Administration Wheezing Budesonide 0.5 mg 09/24/20 07:00 09/25/20 07:53 Budesonide 0.5 Mg/2 Ml Neb INH 0.5 mg RTBID BEVERLEY Administration Enoxaparin Sodium 40 mg 09/24/20 09:00 09/25/20 08:37 Enoxaparin 40 Mg/0.4 Ml Syringe SUBQ 40 mg DAILY BEVERLEY Administration Formoterol Fumarate 20 mcg 09/24/20 07:00 09/25/20 07:53 Formoterol Fumarate Neb 20 Mcg/2 Ml INH 20 mcg RTBID BEVERLEY Administration Azithromycin 500 mg/ Sodium 250 mls @ 250 mls/hr 09/24/20 20:00 09/24/20 21:15 Chloride IV 09/25/20 20:59 Infused DAILY@1999 BEVERLEY Infusion Ceftriaxone Sodium 1 gm/ 100 mls @ 200 mls/hr 09/24/20 21:00 09/24/20 21:44 Sodium Chloride IV Infused DAILY@2099 BEVERLEY Infusion Losartan Potassium 50 mg 09/24/20 09:00 09/25/20 08:38 Losartan 50 Mg Tablet PO 50 mg DAILY BEVERLEY Administration Methylprednisolone 80 mg 09/24/20 06:00 09/25/20 13:36 Methylprednisolone Succinate 40 Mg/Ml Vial IVP 80 mg TID BEVERLEY Administration Nortriptyline HCl 50 mg 09/24/20 21:00 09/24/20 20:20 Nortriptyline 25 Mg Capsule PO 50 mg HS BEVERLEY Administration Sodium Chloride 10 ml 09/23/20 19:46 09/25/20 13:36 Sodium Chloride Flush 0.9% 10 Ml Syringe IVP 10 ml PRN PRN Administration NEEDED PER PROVIDER ORDERS Sodium Chloride 10 ml 09/24/20 01:00 09/25/20 16:21 Sodium Chloride Flush 0.9% 10 Ml Syringe IVP 10 ml 0100,0900,1700 BEVERLEY Administration - Lab Result Fish Bone Diagrams: 09/25/20 08:09 09/25/20 08:09 - Additional Planning My Orders: My Active Orders 09/24/20 20:00 Azithromycin Inj [Zithromax Inj] 500 mg Sodium Chloride 0.9% [Normal Saline 0.9%] 250 ml IV DAILY@199909/24/20 21:00 cefTRIAXone [Rocephin] 1 gm Sodium Chloride 0.9% Minibag [Normal Saline 0.9% Minibag] 100 ml IV DAILY@209909/26/20 05:00 BMP - BASIC METABOLIC PANEL [CHEM] DAILYLAB CBC - COMP BLD CT W/AUTO DIFF [HEME] DAILYLAB 09/27/20 05:00 BMP - BASIC METABOLIC PANEL [CHEM] DAILYLAB CBC - COMP BLD CT W/AUTO DIFF [HEME] DAILYLAB 09/28/20 05:00 BMP - BASIC METABOLIC PANEL [CHEM] DAILYLAB CBC - COMP BLD CT W/AUTO DIFF [HEME] DAILYLAB Subjective - Subjective Patient Reports: Other (Patient resting comfortably in bed. His breathing continues to improve daily. He denies Any other complaint. He is very eager to go home tomorrow.) Objective Vital Signs: Vital Signs - 24 hr 09/24/20 09/24/20 09/25/20 20:05 21:02 00:29 Temperature 37.0 C 36.4 C L Heart Rate 62 Heart Rate [ 72 Brachial] Heart Rate [ 71 Radial] Respiratory 16 16 20 Rate Blood Pressure 129/59 L 121/60 [Left Brachial artery] O2 Saturation 94 90 L 09/25/20 09/25/20 09/25/20 05:35 07:54 09:00 Temperature 36.9 C 36.9 C Heart Rate 66 Heart Rate [ 74 75 Brachial] Heart Rate [ Radial] Respiratory 18 12 18 Rate Blood Pressure 127/45 L 133/69 H [Left Brachial artery] O2 Saturation 92 92 09/25/20 09/25/20 11:52 16:14 Temperature 36.8 C 36.6 C Heart Rate Heart Rate [ 73 75 Brachial] Heart Rate [ Radial] Respiratory 18 16 Rate Blood Pressure 132/65 H 137/67 H [Left Brachial artery] O2 Saturation 93 92 Oxygen O2 Source Nasal cannula I&O (Last 24 Hrs): Intake and Output Totals x24h 09/23/20 09/24/20 09/25/20 23:59 23:59 23:59 Intake Total 1400 2460 1580 Output Total 1300 1250 Balance 1400 1160 330 General: Alert, Oriented x3, No acute distress HEENT: PERRLA, EOMI Neck: Supple, No JVD Neuro: Alert, Non Focal, Oriented Times 3 Cardiovascular: Regular rate, No murmurs Respiratory: Chest non-tender, No respiratory distress, Wheezes (mild) Abdomen: Normal bowel sounds, Soft Extremities: No clubbing, Other (trace lower extremity edema) - Results Results: Laboratory Results WBC 9.1 x10^3/uL (4.8-10.8) 09/25/20 08:09 RBC 4.52 10^6/uL (4.70-6.10) L 09/25/20 08:09 Hgb 14.9 g/dL (14.0-18.0) 09/25/20 08:09 Hct 46.9 % (42.0-52.0) 09/25/20 08:09 MCV 103.8 fL (80.0-94.0) H 09/25/20 08:09 MCH 33.0 pg (27.0-31.0) H 09/25/20 08:09 MCHC 31.8 g/dL (32.0-36.0) L 09/25/20 08:09 RDW 13.8 % (12.0-15.0) 09/25/20 08:09 Plt Count 191 10^3/uL (130-450) 09/25/20 08:09 MPV 9.4 fL (7.4-11.4) 09/25/20 08:09 Neut # (Auto) 8.0 10^3/uL (1.5-6.6) H 09/25/20 08:09 Lymph # (Auto) 0.6 10^3/uL (1.5-3.5) L 09/25/20 08:09 [place] # (Auto) 0.4 10^3/uL (0.0-1.0) 09/25/20 08:09 Eos # (Auto) 0.0 10^3/uL (0.0-0.7) 09/25/20 08:09 Baso # (Auto) 0.0 10^3/uL (0.0-0.1) 09/25/20 08:09 Absolute Nucleated RBC 0.00 x10^3/uL 09/25/20 08:09 Nucleated RBC % 0.0 /100WBC 09/25/20 08:09 D-Dimer 203.5 ng/mL (200.0-255.0) 09/23/20 17:52 Sodium 143 mmol/L (135-145) 09/25/20 08:09 Potassium 4.7 mmol/L (3.5-5.0) 09/25/20 08:09 Chloride 100 mmol/L (101-111) L 09/25/20 08:09 Carbon Dioxide 35 mmol/L (21-32) H 09/25/20 08:09 Anion Gap 8.0 (6-13) 09/25/20 08:09 BUN 33 mg/dL (6-20) H 09/25/20 08:09 Creatinine 0.8 mg/dL (0.6-1.2) 09/25/20 08:09 Estimated GFR (MDRD) 93 (>89) 09/25/20 08:09 Glucose 168 mg/dL (70-100) H 09/25/20 08:09 Calcium 9.0 mg/dL (8.5-10.3) 09/25/20 08:09 Total Bilirubin 1.0 mg/dL (0.2-1.0) 09/23/20 17:52 AST 15 IU/L (10-42) 09/23/20 17:52 ALT 17 IU/L (10-60) 09/23/20 17:52 Alkaline Phosphatase 58 IU/L (42-121) 09/23/20 17:52 Troponin I High Sens 18.7 ng/L (2.3-19.7) 09/24/20 05:40 B-Natriuretic Peptide 325 pg/mL (5-100) H 09/25/20 08:09 Total Protein 6.6 g/dL (6.7-8.2) L 09/23/20 17:52 Albumin 3.9 g/dL (3.2-5.5) 09/23/20 17:52 Globulin 2.7 g/dL (2.1-4.2) 09/23/20 17:52 Albumin/Globulin Ratio 1.4 (1.0-2.2) 09/23/20 17:52 Lipase 16 U/L (22-51) L 09/23/20 17:52 Nasal Adenovirus (PCR) NOT DETECTED 09/23/20 18:00 Nasal B. parapertussis DNA (PCR) NOT DETECTED 09/23/20 18:00 Nasal Coronavir 229E PCR NOT DETECTED 09/23/20 18:00 Nasal Coronavir HKU1 PCR NOT DETECTED 09/23/20 18:00 Nasal Coronavir NL63 PCR NOT DETECTED 09/23/20 18:00 Nasal Coronavir OC43 PCR NOT DETECTED 09/23/20 18:00 Nasal Enterovir/Rhinovir PCR NOT DETECTED 09/23/20 18:00 Nasal Influenza B PCR NOT DETECTED 09/23/20 18:00 Nasal Influenza A PCR NOT DETECTED 09/23/20 18:00 Nasal Parainfluen 1 PCR NOT DETECTED 09/23/20 18:00 Nasal Parainfluen 2 PCR NOT DETECTED 09/23/20 18:00 Nasal Parainfluen 3 PCR NOT DETECTED 09/23/20 18:00 Nasal Parainfluen 4 PCR NOT DETECTED 09/23/20 18:00 Nasal RSV (PCR) NOT DETECTED 09/23/20 18:00 Nasal B.pertussis DNA PCR NOT DETECTED 09/23/20 18:00 Nasal C.pneumoniae (PCR) NOT DETECTED 09/23/20 18:00 Juan Ramon Human Metapneumo PCR NOT DETECTED 09/23/20 18:00 Nasal M.pneumoniae (PCR) NOT DETECTED 09/23/20 18:00 Nasal SARS-CoV-2 (PCR) NOT DETECTED 09/23/20 18:00 - Procedures Procedures: Procedures EXCISION OF ASCENDING COLON, ENDO, DIAGN (01/31/17) INJECT CA CHEMOTHER NEC (09/13/14) OTHER INSTILLATION (09/13/14) TU DESTRUC BLADD LES NEC (09/13/14) ABX Reporting Has patient been on IV antibiotics over the past 48 hours?: Yes
[2020-09-25] MEDS: AZITHROMYCIN INJ 500 MG in SODIUM CHLORIDE 0.9% 250 ML IV SCH (19:24)
[2020-09-25] MEDS: guaiFENesin 600 MG TABLET PO SCH (20:17)
[2020-09-25] MEDS: NORTRIPTYLINE 25 MG CAPSULE PO SCH (20:17)
[2020-09-25] MEDS: cefTRIAXone 1 GM in SODIUM CHLORIDE 0.9% MINIBAG 100 ML IV SCH (20:21)
[2020-09-26] MEDS: IPRATROPIUM/ALBUTEROL 3 ML NEB INH PRN ×3 (00:53→21:28)
[2020-09-26] MEDS: FORMOTEROL FUMARATE NEB 20 MCG/2 ML INH SCH ×3 (00:53→21:28)
[2020-09-26] MEDS: BUDESONIDE 0.5 MG/2 ML NEB INH SCH ×3 (00:54→21:27)
[2020-09-26] MEDS: methylPREDNISolone SUCCINATE 40 MG/ML VIAL IVP SCH ×3 (05:35→22:08)
[2020-09-26] MEDS: SODIUM CHLORIDE FLUSH 0.9% 10 ML SYRINGE IVP PRN ×2 (05:36→13:28)
[2020-09-26 06:27] LABS: EOSINOPHILS # (AUTO) 0.2 10^3/uL (0.0-0.7); HCT - HEMATOCRIT 47.7 % (42.0-52.0); HGB - HEMOGLOBIN 15.2 g/dL (14.0-18.0); LYMPHOCYTES # (AUTO) 0.4 10^3/uL (1.5-3.5); LYMPHOCYTES % (AUTO) 5.1 %; MEAN CORPUSCULAR HEMOGLOBIN 32.8 pg (27.0-31.0); MEAN CORPUSCULAR HGB CONC 31.9 g/dL (32.0-36.0); MEAN PLATELET VOLUME 9.3 fL (7.4-11.4); MONOCYTES # (AUTO) 0.3 10^3/uL (0.0-1.0); MONOCYTES % (AUTO) 3.9 %; NEUTROPHILS # (AUTO) 7.6 10^3/uL (1.5-6.6); NEUTROPHILS % (AUTO) 88.5 %; PLT - PLATELET COUNT 195 10^3/uL (130-450); RED BLOOD COUNT 4.63 10^6/uL (4.70-6.10); RED CELL DISTRIBUTION WIDTH 13.9 % (12.0-15.0); WHITE BLOOD COUNT 8.6 x10^3/uL (4.8-10.8)
[2020-09-26 06:34] LABS: CALCIUM 8.6 mg/dL (8.5-10.3); CREATININE 0.7 mg/dL (0.6-1.2); POTASSIUM 4.4 mmol/L (3.5-5.0)
[2020-09-26] MEDS: ENOXAPARIN 40 MG/0.4 ML SYRINGE SUBQ SCH (09:48)
[2020-09-26] MEDS: guaiFENesin 600 MG TABLET PO SCH ×2 (09:49→20:59)
[2020-09-26] MEDS: LOSARTAN 50 MG TABLET PO SCH (09:49)
[2020-09-26] MEDS: polyethylene glycoL 3350 17 GM PACKET PO SCH (09:50)
[2020-09-26 13:20] LABS: DIFFERENTIAL COMMENT MANUAL=AUTO DIFF; PLATELET ESTIMATE, MANUAL NORMAL (130-450,000) (NORMAL); PLATELET MORPHOLOGY NORMAL APPEARANCE (NORMAL); RBC MORPHOLOGY (MULTIPLE) 2+ MACROCY (NORMAL); WBC MORPHOLOGY (MULTIPLE) NORMAL APPEARANCE (NORMAL)
[2020-09-26] MEDS: SODIUM CHLORIDE FLUSH 0.9% 10 ML SYRINGE IVP SCH ×2 (13:27→20:55)
--- NOTE | 2020-09-26 14:43 | PROVIDER PROGRESS NOTE ---
Assessment/Plan - Problem List (1) Acute respiratory failure with hypoxemia Assessment/Plan: Patient feels better daily. Wheezing has significantly decreased. Patient is still needing 2 L of oxygen via nasal cannula to prevent desats Will continue to treat the underlying problem, his COPD exacerbation. He does not use oxygen at home and would consider using it if it was medically necessary. An oxygen walking desaturation study ordered for tomorrow morning Anticipating discharge home tomorrow, probably with a new home oxygen order. (2) COPD exacerbation Assessment/Plan: Wheezing and air hunger have improved He is getting his last iv Zithromax dose today and is also on empiric Ceftriaxone Plan to continue with nebs, IV steroids, Mucinex and empiric antibiotics. We will start to taper the steroids today. He will need new prescriptions for inhalers, he has never been prescribed these. He may need to go home with a rapid steroid taper like Medrol Dosepak or a slower one using oral Prednisone daily He is amenable to using home oxygen if needed he said. Probable discharge tomorrow. (3) Elevated brain natriuretic peptide (BNP) level Assessment/Plan: An Echo was done today and it showed normal LV size and syst function, LVEF 60%, diastolic function was indeterminate, Normal RV size and function, and significant pulm HTN with PA pressure 68 mmHg. He said his leg edema is gone. (4) Hypertension Assessment/Plan: Stable. On his losartan 50 mg p.o. daily and his HCTZ (5) Tobacco user Assessment/Plan: He says he is a smoker and is not interested in stopping. I asked him if he would stop knowing that it is damaging his lungs and he answered "well there is not much else that interests him in life" and that he was not aware it was damaging his lungs. He is not needing a nicotine patch for urges here - Current Meds Current Meds: Current Medications Generic Name Dose Route Start Last Admin Trade Name Freq PRN Reason Stop Dose Admin Acetaminophen 650 mg 09/23/20 19:46 09/24/20 16:30 Acetaminophen 325 Mg Tablet PO 650 mg Q4HR PRN Administration Pain 1 to 4 Albuterol/Ipratropium 3 ml 09/23/20 19:50 09/26/20 07:28 Ipratropium/Albuterol 3 Ml Neb INH 3 ml Q4HR PRN Administration Wheezing Budesonide 0.5 mg 09/24/20 07:00 09/26/20 07:28 Budesonide 0.5 Mg/2 Ml Neb INH 0.5 mg RTBID BEVERELY Administration Enoxaparin Sodium 40 mg 09/24/20 09:00 09/26/20 09:48 Enoxaparin 40 Mg/0.4 Ml Syringe SUBQ 40 mg DAILY BEVERLEY Administration Formoterol Fumarate 20 mcg 09/24/20 07:00 09/26/20 07:28 Formoterol Fumarate Neb 20 Mcg/2 Ml INH 20 mcg RTBID BEVERLEY Administration Guaifenesin 600 mg 09/25/20 21:00 09/26/20 09:49 Guaifenesin 600 Mg Tablet PO 600 mg BID BEVERLEY Administration Ceftriaxone Sodium 1 gm/ 100 mls @ 200 mls/hr 09/24/20 21:00 09/25/20 20:51 Sodium Chloride IV Infused DAILY@2100 BEVERLEY Infusion Losartan Potassium 50 mg 09/24/20 09:00 09/26/20 09:49 Losartan 50 Mg Tablet PO 50 mg DAILY BEVERLEY Administration Methylprednisolone 80 mg 09/24/20 06:00 09/26/20 13:28 Methylprednisolone Succinate 40 Mg/Ml Vial IVP 80 mg TID BEVERLEY Administration Nortriptyline HCl 50 mg 09/24/20 21:00 09/25/20 20:17 Nortriptyline 25 Mg Capsule PO 50 mg HS BEVERLEY Administration Polyethylene Glycol 17 gm 09/26/20 09:00 09/26/20 09:50 Polyethylene Glycol 3350 17 Gm Packet PO 17 gm DAILY BEVERLEY Administration Sodium Chloride 10 ml 09/23/20 19:46 09/26/20 13:28 Sodium Chloride Flush 0.9% 10 Ml Syringe IVP 10 ml PRN PRN Administration NEEDED PER PROVIDER ORDERS Sodium Chloride 10 ml 09/24/20 01:00 09/26/20 13:27 Sodium Chloride Flush 0.9% 10 Ml Syringe IVP Not Given 0100,0900,1700 BEVERLEY - Lab Result Fish Bone Diagrams: 09/26/20 06:00 09/26/20 06:00 - Additional Planning My Orders: My Active Orders 09/26/20 08:00 Echo Transthoracic Complete [ECHO] Routine 09/26/20 12:46 Miscellaenous Nursing Order [RC] QSHIFT Subjective - Subjective Patient Reports: Feeling Better, Shortness of Breath, Other (No cough) Nursing Reports: Other (Still desaturated to 84% on r.a., nasal cannulla O2 put back on) Objective Vital Signs: Vital Signs - 24 hr 09/25/20 09/25/20 09/25/20 16:14 20:58 21:00 Temperature 36.6 C 36.4 C L Heart Rate 82 Heart Rate [ 75 82 Brachial] Respiratory 16 18 20 Rate Blood Pressure 137/67 H 117/68 [Left Brachial artery] Blood Pressure [Right Brachial artery] O2 Saturation 92 92 09/25/20 09/26/20 09/26/20 23:54 05:43 07:30 Temperature 36.6 C 36.4 C L Heart Rate 80 Heart Rate [ 87 79 Brachial] Respiratory 20 20 18 Rate Blood Pressure 122/70 142/68 H [Left Brachial artery] Blood Pressure [Right Brachial artery] O2 Saturation 91 L 94 09/26/20 09/26/20 09/26/20 08:03 13:00 13:29 Temperature 36.8 C 37.7 C Heart Rate Heart Rate [ 88 86 Brachial] Respiratory 24 26 H Rate Blood Pressure 142/65 H [Left Brachial artery] Blood Pressure 143/66 H [Right Brachial artery] O2 Saturation 95 96 94 Oxygen O2 Source Room air I&O (Last 24 Hrs): Intake and Output Totals x24h 09/24/20 09/25/20 09/26/20 23:59 23:59 23:59 Intake Total 2460 2380 1000 Output Total 1300 1650 800 Balance 1160 730 200 General: Alert, Oriented x3, Other (Cachectic) HEENT: Atraumatic, EOMI, Mucous membr. moist/pink, Other (Lips are cyanotic) Neck: Supple, No JVD (Large knapp makes eval difficult) Neuro: Alert, Non Focal Cardiovascular: Regular rate, No murmurs Respiratory: Wheezes (scattered bilaterally and very poor air mvm diffusely) Abdomen: Normal bowel sounds, Soft Extremities: No clubbing, No edema - Results Results: Laboratory Results WBC 8.6 x10^3/uL (4.8-10.8) 09/26/20 06:00 RBC 4.63 10^6/uL (4.70-6.10) L 09/26/20 06:00 Hgb 15.2 g/dL (14.0-18.0) 09/26/20 06:00 Hct 47.7 % (42.0-52.0) 09/26/20 06:00 MCV 103.0 fL (80.0-94.0) H 09/26/20 06:00 MCH 32.8 pg (27.0-31.0) H 09/26/20 06:00 MCHC 31.9 g/dL (32.0-36.0) L 09/26/20 06:00 RDW 13.9 % (12.0-15.0) 09/26/20 06:00 Plt Count 195 10^3/uL (130-450) 09/26/20 06:00 MPV 9.3 fL (7.4-11.4) 09/26/20 06:00 Neut # (Auto) 7.6 10^3/uL (1.5-6.6) H 09/26/20 06:00 Lymph # (Auto) 0.4 10^3/uL (1.5-3.5) L 09/26/20 06:00 [place] # (Auto) 0.3 10^3/uL (0.0-1.0) 09/26/20 06:00 Eos # (Auto) 0.2 10^3/uL (0.0-0.7) 09/26/20 06:00 Baso # (Auto) 0.0 10^3/uL (0.0-0.1) 09/26/20 06:00 Absolute Nucleated RBC 0.00 x10^3/uL 09/26/20 06:00 Band Neuts % (Manual) Not Reportable 09/26/20 06:00 Abnorm Lymph % (Manual) Not Reportable 09/26/20 06:00 Nucleated RBC % 0.0 /100WBC 09/26/20 06:00 Neutrophils # (Manual) Not Reportable 09/26/20 06:00 Lymphocytes # (Manual) Not Reportable 09/26/20 06:00 Monocytes # (Manual) Not Reportable 09/26/20 06:00 Eosinophils # (Manual) Not Reportable 09/26/20 06:00 Basophils # (Manual) Not Reportable 09/26/20 06:00 Differential Comment MANUAL=AUTO DIFF 09/26/20 06:00 WBC Morphology NORMAL APPEARANCE (NORMAL) 09/26/20 06:00 Platelet Estimate NORMAL (130-450,000) (NORMAL) 09/26/20 06:00 Platelet Morphology NORMAL APPEARANCE (NORMAL) 09/26/20 06:00 RBC Morph Micro Appear 2+ MACROCY (NORMAL) 09/26/20 06:00 D-Dimer 203.5 ng/mL (200.0-255.0) 09/23/20 17:52 Sodium 143 mmol/L (135-145) 09/26/20 06:00 Potassium 4.4 mmol/L (3.5-5.0) 09/26/20 06:00 Chloride 100 mmol/L (101-111) L 09/26/20 06:00 Carbon Dioxide 35 mmol/L (21-32) H 09/26/20 06:00 Anion Gap 8.0 (6-13) 09/26/20 06:00 BUN 31 mg/dL (6-20) H 09/26/20 06:00 Creatinine 0.7 mg/dL (0.6-1.2) 09/26/20 06:00 Estimated GFR (MDRD) 109 (>89) 09/26/20 06:00 Glucose 167 mg/dL (70-100) H 09/26/20 06:00 Calcium 8.6 mg/dL (8.5-10.3) 09/26/20 06:00 Total Bilirubin 1.0 mg/dL (0.2-1.0) 09/23/20 17:52 AST 15 IU/L (10-42) 09/23/20 17:52 ALT 17 IU/L (10-60) 09/23/20 17:52 Alkaline Phosphatase 58 IU/L (42-121) 09/23/20 17:52 Troponin I High Sens 18.7 ng/L (2.3-19.7) 09/24/20 05:40 B-Natriuretic Peptide 271 pg/mL (5-100) H 09/26/20 06:00 Total Protein 6.6 g/dL (6.7-8.2) L 09/23/20 17:52 Albumin 3.9 g/dL (3.2-5.5) 09/23/20 17:52 Globulin 2.7 g/dL (2.1-4.2) 09/23/20 17:52 Albumin/Globulin Ratio 1.4 (1.0-2.2) 09/23/20 17:52 Lipase 16 U/L (22-51) L 09/23/20 17:52 Nasal Adenovirus (PCR) NOT DETECTED 09/23/20 18:00 Nasal B. parapertussis DNA (PCR) NOT DETECTED 09/23/20 18:00 Nasal Coronavir 229E PCR NOT DETECTED 09/23/20 18:00 Nasal Coronavir HKU1 PCR NOT DETECTED 09/23/20 18:00 Nasal Coronavir NL63 PCR NOT DETECTED 09/23/20 18:00 Nasal Coronavir OC43 PCR NOT DETECTED 09/23/20 18:00 Nasal Enterovir/Rhinovir PCR NOT DETECTED 09/23/20 18:00 Nasal Influenza B PCR NOT DETECTED 09/23/20 18:00 Nasal Influenza A PCR NOT DETECTED 09/23/20 18:00 Nasal Parainfluen 1 PCR NOT DETECTED 09/23/20 18:00 Nasal Parainfluen 2 PCR NOT DETECTED 09/23/20 18:00 Nasal Parainfluen 3 PCR NOT DETECTED 09/23/20 18:00 Nasal Parainfluen 4 PCR NOT DETECTED 09/23/20 18:00 Nasal RSV (PCR) NOT DETECTED 09/23/20 18:00 Nasal B.pertussis DNA PCR NOT DETECTED 09/23/20 18:00 Nasal C.pneumoniae (PCR) NOT DETECTED 09/23/20 18:00 Juan Ramon Human Metapneumo PCR NOT DETECTED 09/23/20 18:00 Nasal M.pneumoniae (PCR) NOT DETECTED 09/23/20 18:00 Nasal SARS-CoV-2 (PCR) NOT DETECTED 09/23/20 18:00 - Procedures Procedures: Procedures EXCISION OF ASCENDING COLON, ENDO, DIAGN (01/31/17) INJECT CA CHEMOTHER NEC (09/13/14) OTHER INSTILLATION (09/13/14) TU DESTRUC BLADD LES NEC (09/13/14)
[2020-09-26] MEDS: cefTRIAXone 1 GM in SODIUM CHLORIDE 0.9% MINIBAG 100 ML IV SCH (20:55)
[2020-09-26] MEDS: NORTRIPTYLINE 25 MG CAPSULE PO SCH (20:55)
[2020-09-27] MEDS: SODIUM CHLORIDE FLUSH 0.9% 10 ML SYRINGE IVP SCH ×2 (01:34→06:10)
[2020-09-27 06:01] LABS: HCT - HEMATOCRIT 47.8 % (42.0-52.0); HGB - HEMOGLOBIN 15.1 g/dL (14.0-18.0); LYMPHOCYTES # (AUTO) 0.4 10^3/uL (1.5-3.5); LYMPHOCYTES % (AUTO) 5.7 %; MEAN CORPUSCULAR HEMOGLOBIN 32.3 pg (27.0-31.0); MEAN CORPUSCULAR HGB CONC 31.6 g/dL (32.0-36.0); MEAN CORPUSCULAR VOLUME 102.1 fL (80.0-94.0); MEAN PLATELET VOLUME 9.5 fL (7.4-11.4); MONOCYTES # (AUTO) 0.4 10^3/uL (0.0-1.0); MONOCYTES % (AUTO) 6.3 %; NEUTROPHILS # (AUTO) 5.7 10^3/uL (1.5-6.6); NEUTROPHILS % (AUTO) 87.4 %; PLT - PLATELET COUNT 180 10^3/uL (130-450); RED BLOOD COUNT 4.68 10^6/uL (4.70-6.10); RED CELL DISTRIBUTION WIDTH 14.1 % (12.0-15.0); WHITE BLOOD COUNT 6.5 x10^3/uL (4.8-10.8)
[2020-09-27] MEDS: methylPREDNISolone SUCCINATE 40 MG/ML VIAL IVP SCH ×2 (06:08→14:06)
[2020-09-27 06:14] LABS: CALCIUM 8.6 mg/dL (8.5-10.3); CREATININE 0.6 mg/dL (0.6-1.2); POTASSIUM 4.4 mmol/L (3.5-5.0)
[2020-09-27] MEDS: BUDESONIDE 0.5 MG/2 ML NEB INH SCH (07:40)
[2020-09-27] MEDS: IPRATROPIUM/ALBUTEROL 3 ML NEB INH PRN (07:40)
[2020-09-27] MEDS: FORMOTEROL FUMARATE NEB 20 MCG/2 ML INH SCH (07:40)
[2020-09-27] MEDS ORDERED: hydroCHLOROthiazide 25 MG TABLET PO SCH (09:00)
[2020-09-27] MEDS: polyethylene glycoL 3350 17 GM PACKET PO SCH (09:33)
[2020-09-27] MEDS: guaiFENesin 600 MG TABLET PO SCH (09:33)
[2020-09-27] MEDS: LOSARTAN 50 MG TABLET PO SCH (09:33)
[2020-09-27] MEDS: ENOXAPARIN 40 MG/0.4 ML SYRINGE SUBQ SCH (09:34)
[2020-09-27] MEDS: SODIUM CHLORIDE FLUSH 0.9% 10 ML SYRINGE IVP PRN ×2 (09:38→14:07)
--- NOTE | 2020-09-27 10:07 | PROVIDER PROGRESS NOTE ---
Subjective - Prog Note Date Prog Note Date: 09/27/20 Prog Note Time: 10:05 - Subjective Pt reports feeling: Improved (Pt reports feeling better and is looking forward to going home) Objective - Vital Signs/Intake & Output Vital Signs: Vital Signs x48h Temp Pulse Pulse Pulse Resp BP Pulse Ox 09/27/20 08:30 36.6 C 91 18 139/59 H 93 09/27/20 07:40 76 20 09/27/20 05:36 36.8 C 77 77 20 139/51 H 95 Intake & Output: Intake & Output 09/24/20 09/25/20 09/26/20 09/27/20 23:59 23:59 23:59 23:59 Intake Total 2460 2380 1460 320 Output Total 1300 1911 404 4945 Balance 1160 730 510 -780 - Objective General Appearance: positive: No acute distress, Alert Eyes Bilateral: positive: Normal inspection ENT: positive: ENT inspection nml Neck: positive: Nml inspection Respiratory: positive: Wheezes Cardiovascular: positive: Regular rate & rhythm, No murmur, No gallop Abdomen: positive: Non-tender Skin: positive: Warm, Dry Extremities: positive: Non-tender Neurologic/Psychiatric: positive: Oriented x3 - Lab Results Fish Bones: 09/27/20 05:38 09/27/20 05:38 Other Labs: Lab Results x24hrs 09/27/20 09/27/20 09/26/20 Range/Units 05:38 05:38 06:00 WBC 6.5 (4.8-10.8) x10^3/uL RBC 4.68 L (4.70-6.10) 10^6/uL Hgb 15.1 (14.0-18.0) g/dL Hct 47.8 (42.0-52.0) % MCV 102.1 H (80.0-94.0) fL MCH 32.3 H (27.0-31.0) pg MCHC 31.6 L (32.0-36.0) g/dL RDW 14.1 (12.0-15.0) % Plt Count 180 (130-450) 10^3/uL MPV 9.5 (7.4-11.4) fL Neut # (Auto) 5.7 7.6 H (1.5-6.6) 10^3/uL Lymph # (Auto) 0.4 L 0.4 L (1.5-3.5) 10^3/uL [place] # (Auto) 0.4 0.3 (0.0-1.0) 10^3/uL Eos # (Auto) 0.0 0.2 (0.0-0.7) 10^3/uL Baso # (Auto) 0.0 0.0 (0.0-0.1) 10^3/uL Absolute Nucleated RBC 0.00 0.00 x10^3/uL Band Neuts % (Manual) Not Reportable Abnorm Lymph % (Manual) Not Reportable Nucleated RBC % 0.0 0.0 /100WBC Neutrophils # (Manual) Not Reportable Lymphocytes # (Manual) Not Reportable Monocytes # (Manual) Not Reportable Eosinophils # (Manual) Not Reportable Basophils # (Manual) Not Reportable Differential Comment MANUAL=AUTO DIFF WBC Morphology NORMAL APPEARANCE (NORMAL) Platelet Estimate NORMAL (130-450,000) (NORMAL) Platelet Morphology NORMAL APPEARANCE (NORMAL) RBC Morph Micro Appear 2+ MACROCY (NORMAL) Sodium 142 (135-145) mmol/L Potassium 4.4 (3.5-5.0) mmol/L Chloride 98 L (101-111) mmol/L Carbon Dioxide 36 H (21-32) mmol/L Anion Gap 8.0 (6-13) BUN 26 H (6-20) mg/dL Creatinine 0.6 (0.6-1.2) mg/dL Estimated GFR (MDRD) 130 (>89) Glucose 175 H (70-100) mg/dL Calcium 8.6 (8.5-10.3) mg/dL - Diagnostic Imaging Diagnostic Imaging Results: positive: Final report reviewed (CXR reviewed) Assessment/Plan - Problem List (1) Acute respiratory failure with hypoxemia Impression: Assessment/Plan: Patient feels better and is hoping to go home. Only mild wheezing noted on exam. Patient on 2L nasal cannula during rounds, will need walking O2 sat this morning to determine if he will need O2 at discharge. He does not use oxygen at home and would consider using it if it was medically n ecessary. Will continue to treat COPD exacerbation and set him up with inhalers outpatient. Anticipate discharge later this afternoon pending O2 needs assessment. Walking O2 saturation taken this morning: The patient's O2 saturation was at 90% at rest while on room air. 1L oxygen via nasal cannula was applied to the patient while at rest and his O2 saturation [place] to 93% and remained at 93% upon application of 2L via NC. During ambulation, his oxygen saturation dropped to 85% on room. 1L oxygen via nasal cannula was then applied to the patient which only increased his O2 sats to 89%. Upon increasing his supplemental oxygen to 2L via NC, his O2 sats [place] to 93%. Plan to discharge the patient with 2L oxygen via nasal cannula to use at home. Patient will need education regarding safety so that he does not smoke while he is using the oxygen. (2) COPD exacerbation Assessment/Plan: Wheezing and air hunger have improved since admission. Today he is resting comfortably in the chair and breathing easy on 2L O2. He received his last iv Zithromax dose yesterday and is also on empiric Ceftriaxone Plan to continue with nebs, Mucinex and empiric antibiotics. Will transition to oral steroids today and write for taper at discharge. He will need new prescriptions for inhalers, he has never been prescribed these. He may need to go home with a rapid steroid taper like Medrol Dosepak or a slower one using oral Prednisone daily He is amenable to using home oxygen if needed he said. Probable discharge this afternoon. (3) Elevated brain natriuretic peptide (BNP) level Assessment/Plan: An Echo was done yesterday and it showed normal LV size and syst function, LVEF 60%, diastolic function was indeterminate, Normal RV size and function, and significant pulm HTN with PA pressure 68 mmHg. No peripheral edema present on exam. (4) Hypertension Assessment/Plan: Stable. On his losartan 50 mg p.o. daily and his HCTZ (5) Tobacco user Assessment/Plan: He is not needing a nicotine patch for urges here, but states he is not yet interested in quitting. We explored this more, and he says the last time he tried to quit was "a long time ago" and that he was only offered nicotine patches at the time. Provided him education about triple therapy options available for smoking cessation and encouraged him to think on it and to follow up with his PCP should he decide he is ready to quit. (6) Hyperglycemia Assessment/Plan: Blood glucose has been slightly elevated while here, which we believe to be 2/2 steroid use. No need to treat at this time as steroids will be tapered off upon discharge. Will recommend that he has his glucose level rechecked via his PCP after discharge.
--- NOTE | 2020-09-27 12:30 | DISCHARGE SUMMARY ---
Discharge Summary Admit Date: 09/23/20 Discharge Date: 09/27/20 Discharging Provider: Dr. Landrum Code Status: Attempt Resuscitation Condition at Discharge: Good Discharge Disposition: 01 Home, Self Care Discharge Facility Name: [facility] - DIAGNOSES Admission Diagnoses: COPD exacerbation Discharge Diagnoses with Status of Each Condition: (1) Acute respiratory failure with hypoxemia Impression: Assessment/Plan: Patient feels better and is hoping to go home. Only mild wheezing noted on exam. Patient on 2L nasal cannula during rounds, will need walking O2 sat this morning to determine if he will need O2 at discharge. He does not use oxygen at home and would consider using it if it was medically necessary. Will continue to treat COPD exacerbation and set him up with inhalers outpatient. Walking O2 saturation taken this morning: The patient's O2 saturation was at 90% at rest while on room air. 1L oxygen via nasal cannula was applied to the patient while at rest and his O2 saturation kal[place] to 93% and remained at 93% upon application of 2L via NC. During ambulation, his oxygen saturation dropped to 85% on room. 1L oxygen via nasal cannula was then applied to the patient which only increased his O2 sats to 89%. Upon increasing his supplemental oxygen to 2L via NC, his O2 sats kalina to 93%. Plan to discharge the patient with 2L oxygen via nasal cannula to use at home. Patient will need education regarding safety so that he does not smoke while he is using the oxygen. (2) COPD exacerbation Assessment/Plan: Wheezing and air hunger have improved since admission. Today he is resting comfortably in the chair and breathing easy on 2L O2. He received his last iv Zithromax dose yesterday and is also on empiric Ceftriaxone Plan to continue with nebs, Mucinex and empiric antibiotics. Will transition to oral steroids today and write for taper at discharge. He will need new prescriptions for inhalers, he has never been prescribed these. He may need to go home with a rapid steroid taper like Medrol Dosepak or a slower one using oral Prednisone daily He is amenable to using home oxygen if needed he said. Probable discharge this afternoon. (3) Elevated brain natriuretic peptide (BNP) level Assessment/Plan: An Echo was done yesterday and it showed normal LV size and syst function, LVEF 60%, diastolic function was indeterminate, Normal RV size and function, and significant pulm HTN with PA pressure 68 mmHg. No peripheral edema present on exam. (4) Hypertension Assessment/Plan: Stable. On his losartan 50 mg p.o. daily and his HCTZ (5) Tobacco user Assessment/Plan: He is not needing a nicotine patch for urges here, but states he is not yet interested in quitting. We explored this more, and he says the last time he tried to quit was "a long time ago" and that he was only offered nicotine patches at the time. Provided him education about triple therapy options available for smoking cessation and encouraged him to think on it and to follow up with his PCP should he decide he is ready to quit. - HPI History of Present Illness: He has been dyspneic for 3 to 4 months but his symptoms got significantly worse over the 2 days prior to admission such that he was having a difficult time catching his breath. Upon arrival to the ED he had a documented oxygen saturation of 59% on room air and required 5 L of supplemental oxygen to improve to the 90s. He had diminished lung sounds on auscultation and a wheeze. He was also noted to have a temperature of 38 C. He denied chest pain, abdominal pain, nausea or vomiting. He is being admitted for further treatment. He reports smoking 1ppd for the last 60 years. - CONSULTS | PROCEDURES Procedures: ECHO, CXR - HOSPITAL COURSE Hospital Course: The patient presented on 09/23/20 with dyspnea, hypoxemia, and fevers. CXR was without acute abnormalities, but he was started on Rocephin & Azithromycin for fevers and concern for possible pneumonia. The patient's clinical presentation was suggestive of previously undiagnosed COPD and he was subsequently treated for COPD exacerbation. He was started on Solu-Medrol IV with daily budesonide & Performist along with PRN duonebs. The patient was also noted to have pedal edema and elevated BNP while here. An ECHO was performed and he was started on hydrochlorothiazide with resolution of edema and improvement of BNP. A walking O2 sat test was performed today which qualified him for a prescription for home oxygen use. He will be sent home with oxygen, inhalers, hctz, and steroid taper. - ALLERGIES Allergies/Adverse Reactions: Allergies Allergy/AdvReac Type Severity Reaction Status Date / Time No Known Drug Allergies Allergy Verified 09/23/20 17:40 - MEDICATIONS Home Medications: Ambulatory Orders Medication Instructions Recorded Confirmed Chlorthalidone 12.5 mg ORAL DAILY 04/30/14 09/23/20 Losartan [Cozaar] 100 mg ORAL DAILY 04/30/14 09/23/20 Nortriptyline [Pamelor] 50 mg PO HS 09/09/14 09/23/20 Albuterol Sulf [Ventolin Hfa 1 - 2 puffs INH Q4HR PRN #18 gm 09/27/20 Inhaler] Amoxicillin 500 mg PO TID #9 mg 09/27/20 Budesonide/Formoterol Fumarate 10.2 gm IH BID #1 inhaler 09/27/20 [Symbicort 80-4.5 Mcg Inhaler] Inhaler,Assist Device,Accesory 1 each MC TID #1 each 09/27/20 [Vortex] predniSONE [Deltasone] 5 mg PO UD #21 tablet 09/27/20 - PHYSICAL EXAM AT DISCHARGE General Appearance: positive: No acute distress, Alert Eyes Bilateral: positive: Normal inspection ENT: positive: ENT inspection nml Neck: positive: Nml inspection Respiratory: positive: Chest non-tender, Wheezes Cardiovascular: positive: Regular rate & rhythm Abdomen: positive: Non-tender, No organomegaly Skin: positive: Color nml, Warm, Dry Extremities: positive: Non-tender, No pedal edema Neurologic/Psychiatric: positive: Oriented x3 - LABS Result Diagrams: 09/27/20 05:38 09/27/20 05:38 - FOLLOW UP Follow Up: Pulmonology - TIME SPENT Time Spent in Discharge (Minutes): 30
--- NOTE | 2020-09-27 12:55 | Discharge Plan ---
Discharge Plan Problem Reviewed?: Yes Disposition: Home, Self Care Condition: Good Prescriptions: Albuterol Sulf [Ventolin Hfa Inhaler] 1 - 2 puffs INH Q4HR PRN #18 gm PRN Reason: Shortness Of Air/Wheezing Amoxicillin 500 mg PO TID #9 mg predniSONE [Deltasone] 5 mg PO UD #21 tablet Budesonide/Formoterol Fumarate [Symbicort 80-4.5 Mcg Inhaler] 10.2 gm IH BID #1 inhaler Inhaler,Assist Device,Accesory [Vortex] 1 each MC TID #1 each Diet: Regular Activity Restrictions: Activity as Tolerated Shower Restrictions: No Driving Restrictions: Yes (must wear oxygen) Assistance Devices: Other (oxygen) Health Concerns: You came to our emergency room because you were having severe shortness of breath for about 2 days. This is superimposed on shortness of breath and diminished activities that you have been having for 3 to 4 months. But in the last 2 days it got significantly worse enough that you could not do any activ ities. Normal amount of oxygen, when we check your finger with oximetry, is 98 to 100%. You presented with 59% oxygen levels. We had to put you on 5 L of oxygen to even get you to 90%. Unfortunately you are a 1 pack/day smoker and you have been smoking for 60 years. You do not have a diagnosis of emphysema but with this admission, we think that is what your problem is. Because of the fever, we did treat you with antibiotics in case you had pneumonia. You have now improved to the point that you are able to walk in the hallways with 2 L of oxygen. We also treated you as emphysema with bronchodilators and steroids. Bronchodilators are medicines that relax the muscle tubes of your lungs so that you can breathe better. Especially it allows you to exhale better. Steroids reduce the amount of inflammation that is associated with emphysema. We will have to taper the steroids when you go home. While you were in the hospital the steroids raise your blood sugar. Plan of Treatment: 1. Please see your primary care provider, Rod Bernard, in follow-up in the next 1 to 2 weeks. He needs to see you to follow-up on your lung exam, your medications, to refer you to a rehabilitation program, and to help you stop smoking with the triple therapy program.I would also like him to check your sugar wants to make sure your glucose is still not elevated. 2. Mr. Bernard should refer you to a cardiopulmonary rehab program. People who enter into these rehabilitation programs live longer and have less symptoms if they are able to complete the program. I would also ask Mr. Bernard to order complete pulmonary function tests on you to see how bad your emphysema is. 3. You will be sent home on a long acting bronchodilator that you take twice a day. That is your maintenance medication. On top of that you will be sent home with a short acting bronchodilator that you take anywhere from 1-4 times a day depending how much wheezing or shortness of breath you have.The steroids will be tapered off. That means that you will slowly go off of them day by day and be off of them in the next 5 days. 4. You will also be sent home with oxygen. This may not be a permanent thing. As your lungs get better and you have less inflammation and less wheezing, you may be able to come off the oxygen for a while. I would strongly suggest you stop smoking. If you can stop smoking, and to the cardiopulmonary rehab, you may be able to avoid going on oxygen again for a very long time. 5. A secondary problem that you had from your emphysema was mild right-sided congestive heart failure. Your legs were a little bit swollen. Your blood test for congestive heart failure were elevated. You had an echocardiogram, which is an ultrasound of the heart, before you left the hospital. However that report is not available. Please make sure that Mr. Bernard reviews the final report to make sure that your right-sided congestive heart failure is not severe. To treat that problem you will be sent home on a mild diuretic, a medicine that makes you urinate, by the name of hydrochlorothiazide. Care Goals: Although emphysema cannot be cured, it can be controlled so that you have less symptoms and a better lifestyle. Goals would be to stop smoking, take your medications on a regular basis. Assessment: Patient states that he understands the care goals and will try to follow through. No Smoking: If you smoke, Please STOP! Call for help. Follow-up with: ROD BERNARD PA-C [Primary Care Provider] -
[2020-09-27 17:40] VITALS: BP 156/88
== END 2020-09-27 16:15 | disposition home or self-care (01) | DRG 189 ==
LOC: ED 17:03 → MS2 19:46
PROVIDERS: ADMIT Internal Medicine; ATTEND Specialist
DX: J44.1 Chronic obstructive pulmonary disease with (acute) exacerbation (principal); R09.02 Hypoxemia; F17.200 Nicotine dependence, unspecified, uncomplicated; Z20.822 Contact with and (suspected) exposure to COVID-19; I10 Essential (primary) hypertension; J96.01 Acute respiratory failure with hypoxia; J18.9 Pneumonia, unspecified organism; J43.9 Emphysema, unspecified; F17.210 Nicotine dependence, cigarettes, uncomplicated; I11.0 Hypertensive heart disease with heart failure; I50.810 Right heart failure, unspecified
CPT/HCPCS: 36415; 71045; 80048; 80053; 83690; 83880; 84484; 85025; 85379; 87040; 87631; 93005; 93306; 94640; 94761; 96374; 99285; 99291; A9270; J1650; J7626; 0202U

== ENCOUNTER 2020-12-05 11:30 | Outpatient (CLI) | payer MEDICARE ==
[2020-12-05 11:57] LABS: BASOPHILS % (AUTO) 0.8 %; EOSINOPHILS # (AUTO) 0.1 10^3/uL (0.0-0.7); EOSINOPHILS % (AUTO) 2.5 %; HCT - HEMATOCRIT 45.8 % (42.0-52.0); HGB - HEMOGLOBIN 15.1 g/dL (14.0-18.0); LYMPHOCYTES # (AUTO) 1.6 10^3/uL (1.5-3.5); LYMPHOCYTES % (AUTO) 31.4 %; MEAN CORPUSCULAR HEMOGLOBIN 32.4 pg (27.0-31.0); MEAN CORPUSCULAR VOLUME 98.3 fL (80.0-94.0); MONOCYTES # (AUTO) 0.6 10^3/uL (0.0-1.0); MONOCYTES % (AUTO) 11.2 %; NEUTROPHILS # (AUTO) 2.8 10^3/uL (1.5-6.6); NEUTROPHILS % (AUTO) 53.9 %; PLT - PLATELET COUNT 225 10^3/uL (130-450); RED BLOOD COUNT 4.66 10^6/uL (4.70-6.10); RED CELL DISTRIBUTION WIDTH 13.3 % (12.0-15.0); WHITE BLOOD COUNT 5.1 x10^3/uL (4.8-10.8)
[2020-12-05 12:15] LABS: ALBUMIN 4.1 g/dL (3.2-5.5); ALBUMIN/GLOBULIN RATIO 1.6 (1.0-2.2); CALCIUM 9.2 mg/dL (8.5-10.3); CREATININE 0.7 mg/dL (0.6-1.2); POTASSIUM 4.4 mmol/L (3.5-5.0); TOTAL PROTEIN 6.6 g/dL (6.7-8.2)
[2020-12-05 13:32] LABS: ESTIMATED AVERAGE GLUCOSE 131 mg/dL (70-100); HEMOGLOBIN A1c% 6.2 % (4.27-6.07)
== END 2020-12-05 11:31 | disposition home or self-care (01) ==
LOC: LAB 11:30
PROVIDERS: ATTEND Urology
DX: E11.9 Type 2 diabetes mellitus without complications (principal); Z85.51 Personal history of malignant neoplasm of bladder; N40.0 Benign prostatic hyperplasia without lower urinary tract symptoms; R31.29 Other microscopic hematuria
CPT/HCPCS: 36415; 80053; 83036; 84520; 85025

== ENCOUNTER 2020-12-07 17:05 | Outpatient (CLI) | payer MEDICARE ==
[2020-12-07] MEDS ORDERED: IOVERSOL 320 100 ML VIAL IVP ONE ×2 (17:22→20:57)
--- NOTE | 2020-12-12 22:49 | CT Report ---
PROCEDURE: IVP INDICATIONS: HEMATURIA CONTRAST: IV CONTRAST: Optiray 320 ml: 140 PO CONTRAST: *NO PO CONTRAST TECHNIQUE: After the administration of oral and intravenous contrast, 5 mm thick sections acquired from the diap hragms to the symphysis. 5 mm thick coronal and sagittal reformats were acquired. For radiation dos e reduction, the following was used: automated exposure control, adjustment of mA and/or kV accordin g to patient size. COMPARISON: CT abdomen and pelvis report, 04/16/2014. FINDINGS: Image quality: Excellent. Lung bases: Lung bases are clear. Heart size is normal. Urinary system: Bilateral renal calculi. A 8 x 11 mm stone is seen in the left kidney. There is a 6 mm stone in the mid right kidney. Both kidneys are normal in size and enhancement. Contrast-filled r enal calyces are normal in morphology. Bilateral renal cortical cysts are present. No solid renal ma sses. An 8 mm stone at the left bladder base at the left ureterovesical junction. It is adjacent to the lef t UVJ. There is trace left ureterectasis with the left ureter minimally more prominent than the righ t ureter. Bladder wall thickness is normal. Prostate is enlarged. Solid organs: There is a 0.9 cm low dense nodule in the left hepatic lobe, most likely a cyst. Liver and spleen are normal in size and enhancement. Gallbladder is normal. Biliary system is non dilate d. Pancreas enhances normally. No adrenal nodules. Peritoneum and bowel: Bowel loops demonstrate normal wall thickness and caliber. There is a large a mount of stool in colon. No free fluid or air. Nodes and vessels: No retroperitoneal or mesenteric adenopathy by size criteria. Aorta and inferior vena cava are normal in size. Abdominal wall: No ventral hernias. Pelvis: No pathologic free pelvic fluid. No inguinal hernias or adenopathy. Bones: No suspicious bony lesions. No vertebral body compression fractures. Moderate levoscoliosis . Severe degenerative changes in lumbar spine. IMPRESSION: 1. Nephrolithiasis bilaterally. No hydronephrosis. 2. An 8 mm stone is seen at the left UVJ which may be a just passed stone, nearly passed stone or an impacted stone at the UVJ. There is trace left ureterectasis. 3. Bilateral renal cysts. No solid renal masses. 4. Enlargement of prostate. 5. Large amount of stool in colon. Reviewed by: Los Beasley MD on 12/12/2020 10:47 PM PDT Approved by: Los Beasley MD on 12/12/2020 10:47 PM PDT Station ID: [id number]
== END 2020-12-07 17:06 | disposition home or self-care (01) ==
LOC: DI 17:05
PROVIDERS: ATTEND Urology
DX: R31.29 Other microscopic hematuria (principal); Z85.51 Personal history of malignant neoplasm of bladder; N28.82 Megaloureter; N20.9 Urinary calculus, unspecified; N28.1 Cyst of kidney, acquired; N40.0 Benign prostatic hyperplasia without lower urinary tract symptoms
CPT/HCPCS: 74178; Q9967

== ENCOUNTER 2021-01-27 14:28 | Outpatient (CLI) | payer MEDICARE ==
--- NOTE | 2021-01-27 18:04 | Ultrasound Report ---
PROCEDURE: Retroperitoneal INDICATIONS: KIDNEY STONES TECHNIQUE: Real-time scanning was performed of the retroperitoneal organs, with image documentation. COMPARISON: None. FINDINGS: Kidneys: Kidneys are normal in size. Right kidney measures 13.3 cm long; left kidney measures 12.7 cm long. Right renal cortical thickness is 1.6 cm; left renal cortical thickness is 1.4 cm. Bilatera l renal cysts are noted. No solid masses. 6 mm nonobstructive stone in the lower pole of the right ki dney. 19 mm stone noted in the proximal left ureter which is causing severe left-sided hydronephrosis . Bladder: Pre-void bladder volume is 361 mL. Post-void residual is 82 mL. Pre-void images demonstra te 10 mm stone at the left UVJ. On pre-void images, both right and left ureteral jets are noted with color Doppler interrogation. (Of note, ureteral jets may not be detectable in up to 25% of cases du e to insufficient differences in specific gravity between ureteral and bladder urine). Miscellaneous: No free abdominal fluid. IMPRESSION: 1. 19 mm stone in the proximal left ureter causing severe left-sided hydronephrosis. 2. 10 mm stone at the left UVJ not significantly changed in appearance compared to prior CT IVP obtai meg 12/07/2020. 3. 6 mm nonobstructing left renal stone. 4. Bilateral renal cysts. Reviewed by: Lori Duque MD, PhD on 01/27/2021 6:02 PM PST Approved by: Lori Duque MD, PhD on 01/27/2021 6:02 PM PST Station ID: [id number]
== END 2021-01-27 14:29 | disposition home or self-care (01) ==
LOC: DI 14:28
PROVIDERS: ATTEND Urology
DX: N13.2 Hydronephrosis with renal and ureteral calculous obstruction (principal); N28.1 Cyst of kidney, acquired

== ENCOUNTER 2021-06-12 12:53 | Outpatient (CLI) | payer MEDICARE ==
--- NOTE | 2021-06-12 14:20 | CT Report ---
PROCEDURE: Abdomen/Pelvis WO INDICATIONS: NEPHROLITHIASIS TECHNIQUE: Noncontrast 5 mm thick sections acquired from the diaphragms to the symphysis. 5 mm coronal and sagi ttal reformats were then performed. For radiation dose reduction, the following was used: automated exposure control, adjustment of mA and/or kV according to patient size. COMPARISON: None. FINDINGS: Image quality: Excellent. ABDOMEN: Lung bases: Small bilateral pleural effusions. The lung bases are clear. Heart size is normal. Solid organs: Liver and spleen are normal in size. Gallbladder is normal. Pancreas is not well visu alized without IV contrast but is grossly normal. No adrenal nodules. Kidneys are normal in size, w ithout hydronephrosis or nephrolithiasis. The right kidney has a 4 cm cyst. The left kidney has a 1. 5 cm cyst. The left kidney has a 10 x 6 mm/1300 Hounsfield units stone at the left UPJ causing modera te left hydronephrosis. A previously seen stone at the right UVJ has passed. Ultimately stones in the right kidney are nonobstructive, the largest measuring 6 mm/977 Hounsfield units Peritoneum and bowel: Unenhanced bowel loops demonstrate normal wall thickness and caliber. Increase d stool in the right colon and transverse colon consistent with constipation. No free fluid or air. Nodes and vessels: No retroperitoneal or mesenteric adenopathy by size criteria. Aorta and inferior vena cava are normal in caliber. The aorta has atherosclerotic calcifications. Miscellaneous: No ventral hernias. There is diffuse anasarca. PELVIS: Genitourinary: Bladder wall thickness is normal. Miscellaneous: No inguinal hernias or adenopathy. Bones: Levoscoliosis of the lumbar spine. Both hips have degenerative changes with subchondral cystic lucencies. No suspicious bony lesions. No vertebral body compression fractures. IMPRESSION: 1. 10 x 6 mm stone at the left UPJ causing moderate left hydronephrosis. 2. Previously seen stone at the left UVJ has passed. 3. Multiple nonobstructing stones in the right kidney the largest measuring 6 mm. 4. Constipation. 5. Simple bilateral renal cysts. 6. Small bilateral pleural effusions. Reviewed by: Octavio Singh on 06/12/2021 2:19 PM PDT Approved by: Octavio Singh on 06/12/2021 2:19 PM PDT Station ID: [id number]
== END 2021-06-12 12:54 | disposition home or self-care (01) ==
LOC: DI 12:53
PROVIDERS: ATTEND Urology
DX: N13.2 Hydronephrosis with renal and ureteral calculous obstruction (principal); K59.00 Constipation, unspecified; N28.1 Cyst of kidney, acquired; J90 Pleural effusion, not elsewhere classified

== ENCOUNTER 2021-06-28 11:28 | Inpatient (IN) | payer MEDICARE ==
--- NOTE | 2021-06-28 12:15 | XRAY Report ---
PROCEDURE: Chest 1 View X-Ray INDICATIONS: Chest pain TECHNIQUE: One view of the chest was acquired. COMPARISON: Chest x-ray 09/23/2020 FINDINGS: Surgical changes and devices: None. Lungs and pleura: Right upper lobe calcified granuloma is unchanged. There is a mild left and minimal right pleural effusions. Mediastinum: Mediastinal contours appear normal. Heart size is enlarged. Bones and chest wall: No suspicious bony lesions. Overlying soft tissues appear unremarkable. IMPRESSION: Minimal to mild bilateral effusions. Areas of underlying pneumonia and/or atelectasis cannot be exclu ded. Reviewed by: Ivania Nolan MD on 06/28/2021 12:13 PM PDT Approved by: Ivania Nolan MD on 06/28/2021 12:13 PM PDT Station ID: [id number]
[2021-06-28 12:25] LABS: BASOPHILS % (AUTO) 0.5 %; HCT - HEMATOCRIT 59.9 % (42.0-52.0); HGB - HEMOGLOBIN 18.5 g/dL (14.0-18.0); LYMPHOCYTES # (AUTO) 0.8 10^3/uL (1.5-3.5); LYMPHOCYTES % (AUTO) 12.9 %; MEAN CORPUSCULAR HEMOGLOBIN 33.3 pg (27.0-31.0); MEAN CORPUSCULAR HGB CONC 30.9 g/dL (32.0-36.0); MEAN CORPUSCULAR VOLUME 107.9 fL (80.0-94.0); MEAN PLATELET VOLUME 9.5 fL (7.4-11.4); MONOCYTES # (AUTO) 0.9 10^3/uL (0.0-1.0); MONOCYTES % (AUTO) 13.8 %; NEUTROPHILS # (AUTO) 4.4 10^3/uL (1.5-6.6); NEUTROPHILS % (AUTO) 72.3 %; PLT - PLATELET COUNT 177 10^3/uL (130-450); RED BLOOD COUNT 5.55 10^6/uL (4.70-6.10); RED CELL DISTRIBUTION WIDTH 15.9 % (12.0-15.0); WHITE BLOOD COUNT 6.1 x10^3/uL (4.8-10.8)
[2021-06-28 12:46] LABS: ALBUMIN 4.2 g/dL (3.2-5.5); ALBUMIN/GLOBULIN RATIO 1.8 (1.0-2.2); BILIRUBIN,TOTAL 1.5 mg/dL (0.2-1.0); CALCIUM 9.3 mg/dL (8.5-10.3); CREATININE 1.2 mg/dL (0.6-1.2); POTASSIUM 4.8 mmol/L (3.5-5.0); TOTAL PROTEIN 6.6 g/dL (6.7-8.2)
--- NOTE | 2021-06-28 12:49 | ED Physician Documentation ---
PD HPI DYSPNEA - Stated complaint Stated Complaint: SOA - Chief complaint Chief Complaint: Cardiac - History obtained from History obtained from: Patient - Additional information Additional information: This is an 80-year-old gentleman with history of heart murmur, Ongoing tobacco abuse (1 pack/day) and likely COPD who presents by private vehicle for shortness of breath. He was admitted for COPD exacerbation in September of last year. He had an elevated BNP but echo was grossly normal. He has had progressive shortness of breath for the last several weeks. He states he has no cough but his significant other states he has a mild cough. He denies chest pain. He does have progressive pedal edema up to the knees. He noted his saturation at home to be 57%. He is still smoking about a pack a day. Review of Systems Ten Systems: 10 systems reviewed and negative Constitutional: denies: Fever, Chills Nose: denies: Rhinorrhea / runny nose, Congestion, Foreign Body Cardiac: reports: Pedal edema. denies: Chest pain / pressure, Palpitations, Calf pain Respiratory: reports: Dyspnea PD PAST MEDICAL HISTORY - Past Medical History Cardiovascular: Hypertension Respiratory: None Endocrine/Autoimmune: None GI: None : Other HEENT: Macular degeneration Psych: None Musculoskeletal: None Derm: None - Past Surgical History General: Colonoscopy, Other Ortho: Knee replacement Derm: Skin cancer surgery - Present Medications Home Medications: Ambulatory Orders Medication Instructions Recorded Confirmed Chlorthalidone 12.5 mg ORAL DAILY 04/30/14 09/23/20 Losartan [Cozaar] 100 mg ORAL DAILY 04/30/14 09/23/20 Nortriptyline [Pamelor] 50 mg PO HS 09/09/14 09/23/20 Albuterol Sulf [Ventolin Hfa 1 - 2 puffs INH Q4HR PRN #18 gm 09/27/20 Inhaler] Amoxicillin 500 mg PO TID #9 mg 09/27/20 Budesonide/Formoterol Fumarate 10.2 gm IH BID #1 inhaler 09/27/20 [Symbicort 80-4.5 Mcg Inhaler] Inhaler,Assist Device,Accesory 1 each MC TID #1 each 09/27/20 [Vortex] predniSONE [Deltasone] 5 mg PO UD #21 tablet 09/27/20 - Allergies Allergies/Adverse Reactions: Allergies Allergy/AdvReac Type Severity Reaction Status Date / Time No Known Drug Allergies Allergy Verified 06/28/21 11:47 - Social History Does the pt smoke?: Yes Smoking Status: Current every day smoker - POLST Patient has POLST: No POLST Status: Full Code PD ED PE NORMAL - Vitals Vital signs reviewed: Yes - General General: Alert and oriented X 3, Other (He appears breathless but is speaking in full sentences albeit barely. His room air saturation is 30 once we get him in the room.) - HEENT HEENT: PERRL, EOMI - Neck Neck: Supple, no meningeal sign, No bony TTP - Cardiac Cardiac: RRR, No murmur - Respiratory Respiratory: No respiratory distress, Other (Quite diminished lung sounds throughout with mild tachypnea) - Abdomen Abdomen: Normal bowel sounds, Soft, Non tender - Back Back: No CVA TTP, No spinal TTP - Derm Derm: Normal color, Warm and dry - Extremities Extremities: Other (Peripheral cyanosis and cool extremities with 2-3+ bilateral pitting pedal edema up to the knees, no calf tenderness.) - Neuro Neuro: Alert and oriented X 3, Normal speech Results - Vitals Vitals: Vital Signs - 24 hr 06/28/21 06/28/21 06/28/21 11:38 12:51 13:00 Temperature 36.0 C L 36.8 C Heart Rate 103 H 98 Respiratory 24 23 Rate Blood Pressure 158/80 H 142/79 H O2 Saturation 99 31 L 100 06/28/21 06/28/21 06/28/21 13:41 13:44 14:10 Temperature Heart Rate 99 100 Respiratory 20 Rate Blood Pressure O2 Saturation 99 06/28/21 06/28/21 06/28/21 15:00 15:23 16:36 Temperature Heart Rate 102 H 108 H Respiratory 24 21 Rate Blood Pressure 180/101 H 168/92 H O2 Saturation 91 L 94 90 L Oxygen O2 Source Room air Oxygen Flow Rate 2 - EKG (time done) 1308 Rate: Rate (enter#) (99) Rhythm: NSR, LAE Intervals: RBBB Ischemia: Q waves (inferior). No: ST elevation c/w ischemia, ST depression - Labs Labs: Laboratory Tests 06/28/21 06/28/21 06/28/21 12:18 12:18 12:18 WBC 6.1 RBC 5.55 Hgb 18.5 H Hct 59.9 H MCV 107.9 H MCH 33.3 H MCHC 30.9 L RDW 15.9 H Plt Count 177 MPV 9.5 Neut # (Auto) 4.4 Lymph # (Auto) 0.8 L Andrews # (Auto) 0.9 Eos # (Auto) 0.0 Baso # (Auto) 0.0 Absolute Nucleated RBC 0.00 Nucleated RBC % 0.0 VBG pH VBG pCO2 VBG pO2 VBG HCO3 VBG Total CO2 VBG O2 Saturation VBG Base Excess Sodium 142 Potassium 4.8 Chloride 98 L Carbon Dioxide 33 H Anion Gap 11.0 BUN 43 H Creatinine 1.2 Estimated GFR (MDRD) 58 L Glucose 160 H Calcium 9.3 Total Bilirubin 1.5 H AST 30 ALT 57 Alkaline Phosphatase 76 Troponin I High Sens 75.6 H* B-Natriuretic Peptide Total Protein 6.6 L Albumin 4.2 Globulin 2.4 Albumin/Globulin Ratio 1.8 Lipase 23 Nasal Adenovirus (PCR) Nasal B. parapertussis DNA (PCR) Nasal Coronavir 229E PCR Nasal Coronavir HKU1 PCR Nasal Coronavir NL63 PCR Nasal Coronavir OC43 PCR Nasal Enterovir/Rhinovir PCR Nasal Influenza B PCR Nasal Influenza A PCR Nasal Parainfluen 1 PCR Nasal Parainfluen 2 PCR Nasal Parainfluen 3 PCR Nasal Parainfluen 4 PCR Nasal RSV (PCR) Nasal B.pertussis DNA PCR Nasal C.pneumoniae (PCR) Juan Ramon Human Metapneumo PCR Nasal M.pneumoniae (PCR) Nasal SARS-CoV-2 (PCR) 06/28/21 06/28/21 06/28/21 12:18 13:08 13:08 WBC RBC Hgb Hct MCV MCH MCHC RDW Plt Count MPV Neut # (Auto) Lymph # (Auto) Andrews # (Auto) Eos # (Auto) Baso # (Auto) Absolute Nucleated RBC Nucleated RBC % VBG pH 7.217 L VBG pCO2 85.1 H VBG pO2 37.5 VBG HCO3 33.8 H VBG Total CO2 36.4 H VBG O2 Saturation 66.0 VBG Base Excess 1.6 Sodium Potassium Chloride Carbon Dioxide Anion Gap BUN Creatinine Estimated GFR (MDRD) Glucose Calcium Total Bilirubin AST ALT Alkaline Phosphatase Troponin I High Sens B-Natriuretic Peptide 1107 H Total Protein Albumin Globulin Albumin/Globulin Ratio Lipase Nasal Adenovirus (PCR) NOT DETECTED Nasal B. parapertussis DNA (PCR) NOT DETECTED Nasal Coronavir 229E PCR NOT DETECTED Nasal Coronavir HKU1 PCR NOT DETECTED Nasal Coronavir NL63 PCR NOT DETECTED Nasal Coronavir OC43 PCR NOT DETECTED Nasal Enterovir/Rhinovir PCR NOT DETECTED Nasal Influenza B PCR NOT DETECTED Nasal Influenza A PCR NOT DETECTED Nasal Parainfluen 1 PCR NOT DETECTED Nasal Parainfluen 2 PCR NOT DETECTED Nasal Parainfluen 3 PCR NOT DETECTED Nasal Parainfluen 4 PCR NOT DETECTED Nasal RSV (PCR) NOT DETECTED Nasal B.pertussis DNA PCR NOT DETECTED Nasal C.pneumoniae (PCR) NOT DETECTED Juan Ramon Human Metapneumo PCR NOT DETECTED Nasal M.pneumoniae (PCR) NOT DETECTED Nasal SARS-CoV-2 (PCR) NOT DETECTED - Rads (name of study) Single view chest x-ray demonstrates small bilateral effusions Radiology: EMP read contemporaneously PD MEDICAL DECISION MAKING - ED course ED course: 80-year-old gentleman presents with respiratory failure with marked hypoxemia and longstanding tobacco abuse and history of HFpEF. He does appear fluid overloaded. Differential diagnosis also includes PE and this was screened for with CT angiography. He was administered some Lasix and a DuoNeb and subsequently BiPAP was trialed given his CO2 retention with acidosis but patient ended up refusing this. The hospital here is full especially the ICU. As such after discussion with the patient and his significant other they would like to be transferred to [facility] and they are called. There is actually quite a bit of time where the patient and his significant other had to discuss this disposition as he wanted to go home. [facility] called back and queried as to the patient's intubation status and the patient said he would like to be intubated if necessary. [facility] called back and said they were not accepting the patient. In the interim a [facility] bed opened up and Dr. Cotton accepted at 3:50 PM. - Critical Care Time(min): 45 Time Includes: Direct patient care, Review records, Reassess patient, Document care, Coordinate care, Medical consult, Family consult for tx dec Data interpretation: Labs, Pulse ox Procedures included in critical care time: Peripheral IV Procedures excluded from critical care time: EKG Departure - Departure Disposition: 66 [facility] DC/Xfer Clinical Impression: COPD exacerbation, Respiratory failure (HFpEF) heart failure with preserved ejection fraction Qualifiers: Heart failure chronicity: acute on chronic Qualified Code(s): I50.33 - Acute on chronic diastolic (congestive) heart failure Condition: Critical Discharge Date/Time: 06/28/21 17:30
[2021-06-28] MEDS ORDERED: IPRATROPIUM/ALBUTEROL 3 ML NEB INH STA (12:57)
[2021-06-28] MEDS ORDERED: FUROSEMIDE 40 MG/4 ML VIAL IVP STA (12:57)
[2021-06-28] MEDS ORDERED: methylPREDNISolone SUCCINATE 125 MG/2 ML VIAL IVP STA (12:57)
[2021-06-28 13:14] LABS: VBG BASE EXCESS 1.6 mmol/L (-2 - +2); VBG HCO3 33.8 mmol/L (23-28); VBG PCO2 85.1 mmHg (41-51); VBG PH 7.217 (7.31-7.41); VBG PO2 37.5 mmHg (25-47); VBG TOTAL CO2 36.4 mmol/L (24-29)
[2021-06-28] MEDS ORDERED: IOVERSOL 320 100 ML VIAL IVP ONE ×2 (13:22→15:02)
--- NOTE | 2021-06-28 13:56 | CT Report ---
PROCEDURE: CT chest angiogram with contrast INDICATIONS: Dyspnea, PE protocol CONTRAST: IV CONTRAST: Optiray 320 ml: 80 PO CONTRAST: *NO PO CONTRAST TECHNIQUE: After the administration of intravenous contrast, 2 mm axial images were acquired from the pulmonary apices to the posterior costophrenic angles during the arterial phase. In addition, 1 mm lung kernel and 5 mm soft tissue kernel reconstructions were performed. For radiation dose reduction, the followi ng was used: automated exposure control, adjustment of mA and/or kV according to patient size. COMPARISON: 06/12/2021 FINDINGS: Image quality: Excellent. Pulmonary arteries: Pulmonary arteries are normal in size, and demonstrate no intraluminal filling d efects to suggest central pulmonary embolism. Lungs and pleura: Moderate bibasilar pleural effusions are greater on the left. Emphysematous changes noted at both lung apices Mediastinum: Heart size is normal, without pericardial effusion. No mediastinal or hilar adenopathy . Thoracic aorta is normal in caliber and enhancement. Esophagus is normal in caliber, without hiat al hernia. Bones and chest wall: No suspicious bony lesions. Ribs and thoracic spine appear intact throughout. No axillary or supraclavicular adenopathy. The thyroid is normal in size and there are no incident al findings. Abdomen: Incidental 9 x 6 mm calculus in the proximal left ureter results in moderate left hydronephr osis.Bilateral renal cysts noted. IMPRESSION: 1. No evidence of pulmonary embolism, aortic dissection or aneurysm. 2. Moderate bilateral pleural effusions greater on the left, slightly increased from the prior. 3. Stable left 9 mm proximal ureteral calculus with moderate left hydronephrosis and bilateral renal cysts present. 4. Biapical pulmonary emphysema Reviewed by: Phani Rodriguez MD on 06/28/2021 12:55 PM [facility] Approved by: Phani Rodriguez MD on 06/28/2021 12:55 PM [facility] Station ID: [id number]
[2021-06-28 14:16] LABS: B. PARAPERTUSSIS- RESP PCR PAN NOT DETECTED; B. PERTUSSIS- RESP PCR PANEL NOT DETECTED; C. PNEUMONIAE- RESP PCR PANEL NOT DETECTED; CORONAVIRUS 229E-RESP PCR NOT DETECTED; CORONAVIRUS HKU1-RESP PCR NOT DETECTED; CORONAVIRUS NL63-RESP PCR NOT DETECTED; CORONAVIRUS OC43-RESP PCR NOT DETECTED; HUMAN METAPNEUMOVIRUS NOT DETECTED; INFLUENZA A- RESP PCR PANEL NOT DETECTED; INFLUENZA B - RESP PCR PANEL NOT DETECTED; M. PNEUMONIAE- RESP PCR PANEL NOT DETECTED; PARAINFLUENZA VIRUS 1 NOT DETECTED; PARAINFLUENZA VIRUS 2 NOT DETECTED; PARAINFLUENZA VIRUS 3 NOT DETECTED; PARAINFLUENZA VIRUS 4 NOT DETECTED; RHINOVIRUS/ENTEROVIRUS NOT DETECTED; RSV- RESP PCR PANEL NOT DETECTED; SARS-CoV-2 -RESP PCR PANEL NOT DETECTED
[2021-06-28] MEDS ORDERED: ACETAMINOPHEN 325 MG TABLET PO PRN (16:42)
[2021-06-28] MEDS ORDERED: ONDANSETRON 4 MG/2 ML VIAL IVP PRN (16:42)
[2021-06-28] MEDS ORDERED: SODIUM CHLORIDE FLUSH 0.9% 10 ML SYRINGE IVP PRN (16:42)
[2021-06-28] MEDS ORDERED: IPRATROPIUM/ALBUTEROL 3 ML NEB INH PRN (16:47)
[2021-06-28] MEDS ORDERED: AZITHROMYCIN 250 MG TABLET PO STA (16:52)
[2021-06-28] MEDS ORDERED: NICOTINE 14 MG PATCH TOP PRN (16:58)
--- NOTE | 2021-06-28 17:03 | HISTORY & PHYSICAL EXAMINATION ---
Chief Complaint - Chief Complaint Chief Complaint: SOB, cough, leg swelling History of Present Illness - Admitted From Admitted From:: ED - History Obtained From History obtained from: ED provider and the patient - History of Present Illness HPI Comment/Other: This is an 80-year-old white male with a history of COPD not on home oxygen, prior heart failure with preserved ejection fraction (by Echo done in September 2020 which also showed pulmonary hypertension with PA pressure 58 mmHg). He has HTN and is a smoker and continues to smoke 1 pack/day. He was last admitted he re September 2020 with a COPD exacerbation and leg edema, O2 saturation was 59% on room air at presentation then. Patient presents now with about 5 days of worsening leg edema and slowly progressively worse shortness of breath and a chronic cough. He was so short of breath that he drove himself to the emergency room today. He said his oxygen saturation was 57% on room air at home. In the ED he was documented to have O2 saturation of 31% on room air. He was placed on supplemental oxygen via BiPAP. He refused to wear the BiPAP mask. His O2 saturation increased on nasal cannula at 4 L/min, up to the 95 to 100% range. Labs show BNP of 1100 (in September 2020 the BNP was 600), chest x-ray shows bilateral pleural effusions, CTA chest was done that showed no pulmonary embolism, and confirmed bilateral pleural effusions. His EKG shows right bundle branch block which is chronic. He is Covid neg. The ED provider reached out to the Hospitalist team for admission due to his markedly low oxygen desaturations, for treating a COPD exacerbation and CHF exacerbation. The patient would like to be a full code and would agree to intubation if needed. History - Past Medical History Cardiovascular: reports: Hypertension Respiratory: reports: None Endocrine/Autoimmune: reports: None GI: reports: None : reports: Other HEENT: reports: Macular degeneration Psych: reports: None Musculoskeletal: reports: None Derm: reports: None MRSA Hx?: No - Past Surgical History General: reports: Colonoscopy, Other Ortho: reports: Knee replacement Derm: reports: Skin cancer surgery - Family & Social History Family History: Mother: , Father: Family History Comment/Other: He denies any significant family history. Living arrangement: At home Living Situation: With spouse/s.o. Social History Notes: He resides at home with his significant other. He is independent of activities of daily living. He smokes 1 pack of cigarettes daily. He has been smoking for about 60 years. He denies alcohol or recreational substance use. - POLST Patient has POLST: No POLST Status: Full Code Meds/Allgy - Home Medications Home Medications: Ambulatory Orders Medication Instructions Recorded Confirmed Chlorthalidone 12.5 mg ORAL DAILY 04/30/14 09/23/20 Losartan [Cozaar] 100 mg ORAL DAILY 04/30/14 09/23/20 Nortriptyline [Pamelor] 50 mg PO HS 09/09/14 09/23/20 Albuterol Sulf [Ventolin Hfa 1 - 2 puffs INH Q4HR PRN #18 gm 09/27/20 Inhaler] Amoxicillin 500 mg PO TID #9 mg 09/27/20 Budesonide/Formoterol Fumarate 10.2 gm IH BID #1 inhaler 09/27/20 [Symbicort 80-4.5 Mcg Inhaler] Inhaler,Assist Device,Accesory 1 each MC TID #1 each 09/27/20 [Vortex] predniSONE [Deltasone] 5 mg PO UD #21 tablet 09/27/20 - Allergies Allergies/Adverse Reactions: Allergies Allergy/AdvReac Type Severity Reaction Status Date / Time No Known Drug Allergies Allergy Verified 06/28/21 11:47 Review of Systems - Cardiovascular Cariovascular: reports: Edema - Respiratory Respiratory: reports: Cough, SOB at rest, SOB with exertion - Neurological Neurological: reports: Memory problems, Other (Poor vision) - All Other Systems All Other Systems: reports: Reviewed and negative Exam - Vital Signs Vital Signs: Vital Signs x48h Temp Pulse Resp BP Pulse Ox 06/28/21 16:36 108 H 21 168/92 H 90 L 06/28/21 15:23 94 06/28/21 15:00 102 H 24 180/101 H 91 L 06/28/21 14:10 100 06/28/21 13:44 99 06/28/21 13:41 99 20 06/28/21 13:00 36.8 C 98 23 142/79 H 100 06/28/21 12:51 31 L 06/28/21 11:38 36.0 C L 103 H 24 158/80 H 99 - Physical Exam General Appearance: positive: No acute distress, Alert, Other (Appears disheveld, long hair and long knapp, thin male) Eyes Bilateral: positive: Normal inspection, Other (Poor vision (he had to hold his call light 1 inch from eyes to see the red button)) ENT: positive: No signs of dehydration Neck: positive: Nml inspection, Other (Cannot eval JVP due to long knapp) Respiratory: positive: No respiratory distress (wearing O2 pern.c.), Wheezes (Diffuse wheezes and rhonchi and prolonged expir phase), Rhonchi Cardiovascular: positive: Other (Inaudible heart sounds due to rhonchi) Peripheral Pulses: positive: Other (Hands and fingers are purple) Abdomen: positive: Non-tender, Nml bowel sounds Skin: positive: Warm, Dry Extremities: positive: Other (2+ edema to knees) Neurologic/Psychiatric: positive: Oriented x3, Other (Poor short term memory (could not remember my name)) Conclusion/Plan - Problem List (1) Acute respiratory failure with hypoxia and hypercapnia Conclusion/Plan: We will place the patient on supplemental oxygen, keeping saturations 88% or greater. 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 He also can tolerate saturations that are severely depressed at 30 to 50% and is still mentating and not unconscious. A home oxygen order was needed in the past, he returned the oxygen to the company because he was not using it. We will start the patient on inhaled steroids and IV steroids, bronchodilators via nebulizer and Singulair at at bedtime, also Mucinex for pulmonary toilet and empiric Zithromax (3) Tobacco user Conclusion/Plan: Will order a nicotine patch (4) (HFpEF) heart failure with preserved ejection fraction Conclusion/Plan: The last Echo was done September 2020 and showed LVEF normal. Will continue with her usual cardiac medications. Will give IV Lasix twice daily. Follow I's and O's and daily weights. Order a low salt diet Qualifiers: Heart failure chronicity: acute on chronic Qualified Code(s): I50.33 - Acute on chronic diastolic (congestive) heart failure (5) Pleural effusion Conclusion/Plan: This is also a sign of his volume overload. Will continue with IV twice daily diuretics. Give supplemental oxygen as this is also probably adding to his desaturations (6) Prerenal azotemia Conclusion/Plan: This is a concern since he is on a thiazide diuretic and we will be increasing the potency of diuresis by using a loop diuretic. Avoid nephrotoxins. Follow I's and O's. Follow BMP daily. (7) Poor short term memory Conclusion/Plan: He admits that his memory has been worsening and that he is also "getting slower". Will help him with reorienting - Lab Results Fish Bones: 06/28/21 12:18 06/28/21 12:18 - Diagnostic Imaging Results Diagnostic Imaging Results: positive: Final report reviewed (Attestation: The patient is expected to be discharged or transferred to another facility for 96 hours: Yes)
[2021-06-28] MEDS: methylPREDNISolone SUCCINATE 40 MG/ML VIAL IVP SCH ×2 (19:30→21:36)
[2021-06-28] MEDS: SODIUM CHLORIDE FLUSH 0.9% 10 ML SYRINGE IVP SCH ×2 (19:30→23:49)
[2021-06-28] MEDS: IPRATROPIUM/ALBUTEROL 3 ML NEB INH SCH (20:50)
[2021-06-28] MEDS: BUDESONIDE 0.5 MG/2 ML NEB INH SCH (20:50)
[2021-06-28] MEDS: METOPROLOL TARTRATE 25 MG TABLET PO SCH (21:36)
[2021-06-28] MEDS: guaiFENesin 600 MG TABLET PO SCH (21:36)
[2021-06-28] MEDS: MONTELUKAST 10 MG TABLET PO SCH (21:36)
[2021-06-29] MEDS: methylPREDNISolone SUCCINATE 40 MG/ML VIAL IVP SCH ×3 (05:02→21:17)
[2021-06-29] MEDS: FUROSEMIDE 40 MG/4 ML VIAL IVP SCH ×2 (05:02→14:25)
[2021-06-29 06:23] LABS: CALCIUM 8.8 mg/dL (8.5-10.3); MAGNESIUM 2.2 mg/dL (1.7-2.8); POTASSIUM 4.4 mmol/L (3.5-5.0)
[2021-06-29 06:45] LABS: BASOPHILS % (AUTO) 0.3 %; HGB - HEMOGLOBIN 19.2 g/dL (14.0-18.0); LYMPHOCYTES # (AUTO) 0.4 10^3/uL (1.5-3.5); LYMPHOCYTES % (AUTO) 9.4 %; MEAN CORPUSCULAR HEMOGLOBIN 33.2 pg (27.0-31.0); MEAN CORPUSCULAR VOLUME 103.8 fL (80.0-94.0); MEAN PLATELET VOLUME 9.8 fL (7.4-11.4); MONOCYTES # (AUTO) 0.2 10^3/uL (0.0-1.0); MONOCYTES % (AUTO) 4.8 %; NEUTROPHILS # (AUTO) 3.2 10^3/uL (1.5-6.6); PLT - PLATELET COUNT 163 10^3/uL (130-450); RED BLOOD COUNT 5.78 10^6/uL (4.70-6.10); RED CELL DISTRIBUTION WIDTH 15.3 % (12.0-15.0); WHITE BLOOD COUNT 3.7 x10^3/uL (4.8-10.8)
[2021-06-29] MEDS: IPRATROPIUM/ALBUTEROL 3 ML NEB INH SCH ×4 (07:36→20:36)
[2021-06-29] MEDS: BUDESONIDE 0.5 MG/2 ML NEB INH SCH ×2 (07:36→20:36)
[2021-06-29] MEDS: METOPROLOL TARTRATE 25 MG TABLET PO SCH (08:33)
[2021-06-29] MEDS: ENOXAPARIN 40 MG/0.4 ML SYRINGE SUBQ SCH (08:34)
[2021-06-29] MEDS: SODIUM CHLORIDE FLUSH 0.9% 10 ML SYRINGE IVP SCH ×2 (08:34→21:17)
[2021-06-29] MEDS: LOSARTAN 50 MG TABLET PO SCH (08:34)
[2021-06-29] MEDS: AZITHROMYCIN 250 MG TABLET PO SCH (08:34)
[2021-06-29] MEDS: guaiFENesin 600 MG TABLET PO SCH ×2 (08:34→21:17)
--- NOTE | 2021-06-29 11:29 | PHARMACY PROGRESS NOTE ---
- Best Possible Medication History Admit Date and Time: 06/28/21 1842 Processed by: Pharmacy Medication History completed: Yes Patient Interview: Pt unable to participate Secondary Source(s): Physician records, Pharmacy records, Insurance records As the person ultimately responsible for medication therapy, providers are able to order a medication from an existing home medication list in [facility] via the "Reconcile Routine" prior to Confirmation of that medication by application support intern. Such practice is discouraged except when the physician, in their clinical judgment, deems that a medical need exists for a medication without regard to previous use.
[2021-06-29 14:29] LABS: FOLATE 23.2 ng/mL (5.90 - >24.8)
--- NOTE | 2021-06-29 18:01 | PROVIDER PROGRESS NOTE ---
Assessment/Plan - Problem List (1) Acute respiratory failure with hypoxia and hypercapnia Assessment/Plan: We ordered supplemental oxygen, keeping saturations 88% or greater. We are treating the 2 underlying problems causing desaturation which appear to be COPD exacerbation with probable bronchitis, and fluid overload with leg edema and pleural effusions. Will plan an oximetry walk study on day of DCh, pt agrees again to be on oxygen. Will order PT and OT evaluations for [facility] home soon (2) COPD exacerbation Assessment/Plan: With his polycythemia (hemoglobin 18.5> 19) it is obvious that he has longstanding hypoxic stimulation of bone marrow Red cell production. He also can tolerate saturations that are severely depressed at 30 to 50% and is still mentating and was not unconscious. A home oxygen order was needed in the past, he returned the oxygen to the company because he was not using it. We have start the patient on inhaled steroids and IV steroids, bronchodilators via nebulizer and Singulair at at bedtime, also Mucinex for pulmonary toilet and empiric Zithromax. Will plan an oximetry walk study on day of DCh, pt agrees again to be on oxygen (3) Tobacco user Assessment/Plan: We ordered a nicotine patch (4) (HFpEF) heart failure with preserved ejection fraction Qualifiers: Heart failure chronicity: acute on chronic Qualified Code(s): I50.33 - Acute on chronic diastolic (congestive) heart failure Assessment/Plan: The last Echo was done September 2020 and showed LVEF normal. Will continue with his usual cardiac medications.Ordered a low salt diet We gave IV Lasix twice daily and he has no further ankle edema. Will change to oral diuretic tomorrow Following I's and O's and he is in neg balance. Also following daily weights. (5) Pleural effusion Assessment/Plan: This is also a sign of his volume overload. We ordered IV twice daily diuretics. Give supplemental oxygen as this is also probably adding to his desaturations (6) Prerenal azotemia Assessment/Plan: This persists and is a concern since he was on a thiazide diuretic and here his diuresis is by using a loop diuretic. Avoid nephrotoxins. Follow I's and O's. Follow BMP daily. (7) Poor short term memory Assessment/Plan: He admits that his memory has been worsening and that he is also "getting slower". Will order PT and OT evals for [facility] home soon. - Current Meds Current Meds: Current Medications Generic Name Dose Route Start Last Admin Trade Name Fiona PRN Reason Stop Dose Admin Albuterol/Ipratropium 3 ml 06/28/21 19:00 06/29/21 14:38 Ipratropium/Albuterol 3 Ml Neb INH 3 ml RTQID BEVERLEY Administration Azithromycin 250 mg 06/29/21 09:00 06/29/21 08:34 Azithromycin 250 Mg Tablet PO 07/03/21 00:01 250 mg DAILY BEVERLEY Administration Budesonide 0.5 mg 06/28/21 19:00 06/29/21 07:36 Budesonide 0.5 Mg/2 Ml Neb INH 0.5 mg RTBID BEVERLEY Administration Enoxaparin Sodium 40 mg 06/29/21 09:00 06/29/21 08:34 Enoxaparin 40 Mg/0.4 Ml Syringe SUBQ 40 mg DAILY BEVERLEY Administration Furosemide 40 mg 06/29/21 06:00 06/29/21 14:25 Furosemide 40 Mg/4 Ml Vial IVP 40 mg BIDDIURETIC BEVERLEY Administration Guaifenesin 600 mg 06/28/21 21:00 06/29/21 08:34 Guaifenesin 600 Mg Tablet PO 600 mg BID BEVERLEY Administration Losartan Potassium 50 mg 06/29/21 09:00 06/29/21 08:34 Losartan 50 Mg Tablet PO 50 mg DAILY BEVERLEY Administration Methylprednisolone 40 mg 06/28/21 17:00 06/29/21 14:25 Methylprednisolone Succinate 40 Mg/Ml Vial IVP 40 mg TID BEVERLEY Administration Metoprolol Tartrate 25 mg 06/28/21 21:00 06/29/21 08:33 Metoprolol Tartrate 25 Mg Tablet PO 25 mg BID BEVERLEY Administration Montelukast Sodium 10 mg 06/28/21 21:00 06/28/21 21:36 Montelukast 10 Mg Tablet PO 10 mg QPM BEVERLEY Administration Sodium Chloride 10 ml 06/28/21 17:00 06/29/21 08:34 Sodium Chloride Flush 0.9% 10 Ml Syringe IVP 10 ml 0100,0900,1700 BEVERLEY Administration - Lab Result Fish Bone Diagrams: 06/29/21 05:55 06/29/21 05:55 - Additional Planning My Orders: My Active Orders 06/28/21 17:00 Sodium Chloride Flush 0.9% [Normal Saline Flush 0.9%] 10 ml IVP 0100,0900,1700 methylPREDNISolone SUCCINATE [SOLU-Medrol (40MG VIAL)] 40 mg IVP TID 06/28/21 19:00 Budesonide [Pulmicort] 0.5 mg INH RTBID Ipratropium/Albuterol [Duoneb] 3 ml INH RTQID 06/28/21 21:00 Metoprolol Tartrate [Lopressor] 25 mg PO BID Montelukast [Singulair] 10 mg PO QPM guaiFENesin [Mucinex] 600 mg PO BID 06/29/21 Evaluate and Treat OT [OT] Routine Evaluate and Treat PT [PT] Routine 06/29/21 06:00 FUROSEMIDE INJ 40mg VIAL [LASIX INJ 40 mg VIAL] 40 mg IVP BIDDIURETIC 06/29/21 09:00 Azithromycin [Zithromax] 250 mg PO DAILY Enoxaparin [Lovenox] 40 mg SUBQ DAILY Losartan [Cozaar] 50 mg PO DAILY 06/30/21 05:00 BMP - BASIC METABOLIC PANEL [CHEM] DAILYLAB BNP - B-NATRIURETIC PEPTIDE [IAI] DAILYLAB CBC - COMP BLD CT W/AUTO DIFF [HEME] DAILYLAB 07/01/21 05:00 BMP - BASIC METABOLIC PANEL [CHEM] DAILYLAB BNP - B-NATRIURETIC PEPTIDE [IAI] DAILYLAB CBC - COMP BLD CT W/AUTO DIFF [HEME] DAILYLAB Subjective - Subjective Patient Reports: Feeling Better, Resting Comfortably (Grandson at bedside visiting), Other (Less cough, less SOB) Objective Vital Signs: Vital Signs - 24 hr 06/28/21 06/28/21 06/28/21 18:23 20:54 21:00 Temperature 37.2 C Heart Rate 103 H Heart Rate [ Brachial] Heart Rate [ 104 H Monitoring electrodes] Heart Rate [ Supine] Respiratory 16 20 Rate Blood Pressure Blood Pressure 156/79 H [Left Brachial artery] Blood Pressure [Right Brachial artery] Blood Pressure [Supine] O2 Saturation 92 96 06/28/21 06/29/21 06/29/21 23:47 05:00 07:41 Temperature 37.2 C 36.6 C Heart Rate 92 Heart Rate [ 88 85 Brachial] Heart Rate [ Monitoring electrodes] Heart Rate [ Supine] Respiratory 15 18 20 Rate Blood Pressure Blood Pressure 134/80 H 119/61 [Left Brachial artery] Blood Pressure [Right Brachial artery] Blood Pressure [Supine] O2 Saturation 94 95 06/29/21 06/29/21 06/29/21 07:54 08:33 10:40 Temperature 37.2 C Heart Rate Heart Rate [ 94 Brachial] Heart Rate [ Monitoring electrodes] Heart Rate [ 92 Supine] Respiratory 17 Rate Blood Pressure 141/80 H Blood Pressure 141/80 H [Left Brachial artery] Blood Pressure [Right Brachial artery] Blood Pressure 124/67 [Supine] O2 Saturation 95 06/29/21 06/29/21 06/29/21 10:45 11:27 11:33 Temperature 37.5 C Heart Rate 88 Heart Rate [ 89 Brachial] Heart Rate [ Monitoring electrodes] Heart Rate [ 92 Supine] Respiratory 18 21 Rate Blood Pressure Blood Pressure 110/65 [Left Brachial artery] Blood Pressure [Right Brachial artery] Blood Pressure 124/67 [Supine] O2 Saturation 96 06/29/21 06/29/21 14:40 15:32 Temperature 37.2 C Heart Rate 93 Heart Rate [ 92 Brachial] Heart Rate [ Monitoring electrodes] Heart Rate [ Supine] Respiratory 23 18 Rate Blood Pressure Blood Pressure [Left Brachial artery] Blood Pressure 109/59 L [Right Brachial artery] Blood Pressure [Supine] O2 Saturation 95 Oxygen O2 Source Nasal cannula Oxygen Flow Rate 2 I&O (Last 24 Hrs): Intake and Output Totals x24h 06/27/21 06/28/21 06/29/21 23:59 23:59 23:59 Intake Total 300 1150 Output Total 1350 1000 Balance -1050 150 General: Alert, Oriented x3, No acute distress (wearing O2 per n.c.), Other (Thin, disheveled WM, laying nearly supine in bed) HEENT: EOMI, Other (Cannot eval JVP due to long knapp) Neck: Supple Neuro: Alert, Non Focal, Other (Poor short term memory) Cardiovascular: Other (1/6 syst murmur at LLSB) Respiratory: No respiratory distress (at rest, wearing O2 per n.c.) Abdomen: Normal bowel sounds, Soft, No tenderness Extremities: No edema, No tenderness/swelling - Results Results: Laboratory Results WBC 3.7 x10^3/uL (4.8-10.8) L 06/29/21 05:55 RBC 5.78 10^6/uL (4.70-6.10) 06/29/21 05:55 Hgb 19.2 g/dL (14.0-18.0) H 06/29/21 05:55 Hct 60.0 % (42.0-52.0) H 06/29/21 05:55 MCV 103.8 fL (80.0-94.0) H 06/29/21 05:55 MCH 33.2 pg (27.0-31.0) H 06/29/21 05:55 MCHC 32.0 g/dL (32.0-36.0) 06/29/21 05:55 RDW 15.3 % (12.0-15.0) H 06/29/21 05:55 Plt Count 163 10^3/uL (130-450) 06/29/21 05:55 MPV 9.8 fL (7.4-11.4) 06/29/21 05:55 Neut # (Auto) 3.2 10^3/uL (1.5-6.6) 06/29/21 05:55 Lymph # (Auto) 0.4 10^3/uL (1.5-3.5) L 06/29/21 05:55 Arroyo # (Auto) 0.2 10^3/uL (0.0-1.0) 06/29/21 05:55 Eos # (Auto) 0.0 10^3/uL (0.0-0.7) 06/29/21 05:55 Baso # (Auto) 0.0 10^3/uL (0.0-0.1) 06/29/21 05:55 Absolute Nucleated RBC 0.00 x10^3/uL 06/29/21 05:55 Nucleated RBC % 0.0 /100WBC 06/29/21 05:55 VBG pH 7.217 (7.31-7.41) L 06/28/21 13:08 VBG pCO2 85.1 mmHg (41-51) H 06/28/21 13:08 VBG pO2 37.5 mmHg (25-47) 06/28/21 13:08 VBG HCO3 33.8 mmol/L (23-28) H 06/28/21 13:08 VBG Total CO2 36.4 mmol/L (24-29) H 06/28/21 13:08 VBG O2 Saturation 66.0 % (60-80) 06/28/21 13:08 VBG Base Excess 1.6 mmol/L (-2 - +2) 06/28/21 13:08 Sodium 143 mmol/L (135-145) 06/29/21 05:55 Potassium 4.4 mmol/L (3.5-5.0) 06/29/21 05:55 Chloride 96 mmol/L (101-111) L 06/29/21 05:55 Carbon Dioxide 33 mmol/L (21-32) H 06/29/21 05:55 Anion Gap 14.0 (6-13) H 06/29/21 05:55 BUN 34 mg/dL (6-20) H 06/29/21 05:55 Creatinine 1.0 mg/dL (0.6-1.2) 06/29/21 05:55 Estimated GFR (MDRD) 72 (>89) L 06/29/21 05:55 Glucose 153 mg/dL (70-100) H 06/29/21 05:55 Calcium 8.8 mg/dL (8.5-10.3) 06/29/21 05:55 Magnesium 2.2 mg/dL (1.7-2.8) 06/29/21 05:55 Total Bilirubin 1.5 mg/dL (0.2-1.0) H 06/28/21 12:18 AST 30 IU/L (10-42) 06/28/21 12:18 ALT 57 IU/L (10-60) 06/28/21 12:18 Alkaline Phosphatase 76 IU/L (42-121) 06/28/21 12:18 Troponin I High Sens 66.0 ng/L (2.3-19.7) H* 06/28/21 16:55 B-Natriuretic Peptide 1495 pg/mL (5-100) H 06/29/21 05:57 Total Protein 6.6 g/dL (6.7-8.2) L 06/28/21 12:18 Albumin 4.2 g/dL (3.2-5.5) 06/28/21 12:18 Globulin 2.4 g/dL (2.1-4.2) 06/28/21 12:18 Albumin/Globulin Ratio 1.8 (1.0-2.2) 06/28/21 12:18 Lipase 23 U/L (22-51) 06/28/21 12:18 Vitamin B12 961 pg/mL (180-914) H 06/29/21 05:55 Folate 23.20 ng/mL (5.90 - >24.8) 06/29/21 05:55 Nasal Adenovirus (PCR) NOT DETECTED 06/28/21 13:08 Nasal B. parapertussis DNA (PCR) NOT DETECTED 06/28/21 13:08 Nasal Coronavir 229E PCR NOT DETECTED 06/28/21 13:08 Nasal Coronavir HKU1 PCR NOT DETECTED 06/28/21 13:08 Nasal Coronavir NL63 PCR NOT DETECTED 06/28/21 13:08 Nasal Coronavir OC43 PCR NOT DETECTED 06/28/21 13:08 Nasal Enterovir/Rhinovir PCR NOT DETECTED 06/28/21 13:08 Nasal Influenza B PCR NOT DETECTED 06/28/21 13:08 Nasal Influenza A PCR NOT DETECTED 06/28/21 13:08 Nasal Parainfluen 1 PCR NOT DETECTED 06/28/21 13:08 Nasal Parainfluen 2 PCR NOT DETECTED 06/28/21 13:08 Nasal Parainfluen 3 PCR NOT DETECTED 06/28/21 13:08 Nasal Parainfluen 4 PCR NOT DETECTED 06/28/21 13:08 Nasal RSV (PCR) NOT DETECTED 06/28/21 13:08 Nasal B.pertussis DNA PCR NOT DETECTED 06/28/21 13:08 Nasal C.pneumoniae (PCR) NOT DETECTED 06/28/21 13:08 Juan Ramon Human Metapneumo PCR NOT DETECTED 06/28/21 13:08 Nasal M.pneumoniae (PCR) NOT DETECTED 06/28/21 13:08 Nasal SARS-CoV-2 (PCR) NOT DETECTED 06/28/21 13:08 - Procedures Procedures: Procedures EXCISION OF ASCENDING COLON, ENDO, DIAGN (01/31/17) INJECT CA CHEMOTHER NEC (09/13/14) OTHER INSTILLATION (09/13/14) TU DESTRUC BLADD LES NEC (09/13/14)
[2021-06-29] MEDS ORDERED: NORTRIPTYLINE 25 MG CAPSULE PO SCH (21:00)
[2021-06-29] MEDS: MONTELUKAST 10 MG TABLET PO SCH (21:17)
[2021-06-30] MEDS: SODIUM CHLORIDE FLUSH 0.9% 10 ML SYRINGE IVP SCH ×2 (00:12→09:19)
[2021-06-30 06:02] LABS: BASOPHILS % (AUTO) 0.1 %; HCT - HEMATOCRIT 54.8 % (42.0-52.0); HGB - HEMOGLOBIN 17.2 g/dL (14.0-18.0); LYMPHOCYTES # (AUTO) 0.4 10^3/uL (1.5-3.5); LYMPHOCYTES % (AUTO) 4.7 %; MEAN CORPUSCULAR HEMOGLOBIN 32.5 pg (27.0-31.0); MEAN CORPUSCULAR HGB CONC 31.4 g/dL (32.0-36.0); MEAN CORPUSCULAR VOLUME 103.6 fL (80.0-94.0); MONOCYTES # (AUTO) 0.4 10^3/uL (0.0-1.0); MONOCYTES % (AUTO) 4.7 %; NEUTROPHILS # (AUTO) 7.5 10^3/uL (1.5-6.6); NEUTROPHILS % (AUTO) 90.3 %; PLT - PLATELET COUNT 150 10^3/uL (130-450); RED BLOOD COUNT 5.29 10^6/uL (4.70-6.10); RED CELL DISTRIBUTION WIDTH 15.1 % (12.0-15.0); WHITE BLOOD COUNT 8.3 x10^3/uL (4.8-10.8)
[2021-06-30 06:12] LABS: CALCIUM 8.6 mg/dL (8.5-10.3); CREATININE 1.2 mg/dL (0.6-1.2); POTASSIUM 4.4 mmol/L (3.5-5.0)
[2021-06-30] MEDS: BUDESONIDE 0.5 MG/2 ML NEB INH SCH (07:40)
[2021-06-30] MEDS: IPRATROPIUM/ALBUTEROL 3 ML NEB INH SCH ×2 (07:40→11:07)
[2021-06-30] MEDS ORDERED: METOPROLOL SUCCINATE 25 MG TABLET PO SCH ×2 (09:00)
[2021-06-30] MEDS ORDERED: FUROSEMIDE 20 MG TABLET PO SCH (09:00)
[2021-06-30] MEDS ORDERED: NON FORMULARY MED (Losartan Potassium [Cozaar] 100 MG Tablet) PO SCH (09:00)
[2021-06-30] MEDS ORDERED: CHOLECALCIFEROL 25 MCG TABLET PO SCH (09:00)
[2021-06-30] MEDS ORDERED: TAMSULOSIN 0.4 MG CAPSULE PO SCH (09:00)
[2021-06-30] MEDS: AZITHROMYCIN 250 MG TABLET PO SCH (09:18)
[2021-06-30] MEDS: ENOXAPARIN 40 MG/0.4 ML SYRINGE SUBQ SCH (09:19)
[2021-06-30] MEDS: guaiFENesin 600 MG TABLET PO SCH (09:19)
[2021-06-30] MEDS: LOSARTAN 50 MG TABLET PO SCH (09:19)
[2021-06-30 11:59] VITALS: BP 147/83
--- NOTE | 2021-06-30 13:07 | Discharge Plan ---
Discharge Plan Problem Reviewed?: Yes Disposition: Home Health Service Condition: Stable Prescriptions: Ipratropium/Albuterol [Combivent Respimat] 2 puffs IH QID #1 inh Losartan [Cozaar] 50 mg PO DAILY #30 tablet Furosemide [Lasix] 20 mg PO MOWEFR #15 tablet guaiFENesin [Mucinex] 600 mg PO BID #10 tablet Azithromycin [Zithromax] 250 mg PO DAILY #3 tablet Diet: Low Sodium Activity Restrictions: Activity as Tolerated Shower Restrictions: No Driving Restrictions: Yes Assistance Devices: Walker Weight Bearing: Full Weight Health Concerns: You were hospitalized because of very low oxygen levels and shortness of breath. We found you had fluid retention and a COPD exacerbation. You received medicines for your emphysema and to eliminate fluids. You are being discharged with several new medications and a change of medicine. Please follow the new medications listed here (attached). Guaifenesin for cough and phlegm should be taken for about another week. Zithromax antibiotic should be taken for 3 more days. You are new Lasix (Furosemide) which you should take on Saturday. Your Losartan dose of 100 mg has been decreased to 50 mg. You are now on a new inhaler called Combivent, please use this by taking 2 puffs 4 times a day. A new refill for your Albuterol inhaler was also ordered, this is your rescue inhaler that you can use every 4 hours if needed. All new prescriptions were sent to your [facility] pharmacy in [place]. You were tested to see if you need home oxygen and you do, thus a new order has been placed for a home oxygen tank to be set up for you. It should be set at 2/L per minute continuously, daytime, during sleep and with activity. A referral was sent to home health agency to come to the house for giving you physical therapy, Occupational Therapy and a bath aide has been ordered. Plan of Treatment: As above. Care Goals: Improvement in symptoms and stabilization are the goals. Assessment: This instruction sheet is provided for your caregivers, and as a reminder for you. Additional Instructions or Follow Up instructions: Your Primary Care Provider in the next 1 to 2 weeks for hospital follow-up visit. If you have new or worsening symptoms, call your PCP for advice or come to the Emergency Room. No Smoking: If you smoke, Please STOP! Call for help. Follow-up with: PUNEET CABRAL ARNP [Primary Care Provider] -
--- NOTE | 2021-06-30 13:19 | DISCHARGE SUMMARY ---
Discharge Summary Admit Date: 06/28/21 Discharge Date: 06/30/21 Discharging Provider: Dr Jessica Cotton Primary Care Provider: MAURY Sanchez Code Status: Attempt Resuscitation Condition at Discharge: Stable Discharge Disposition: Replaced By [facility] - [facility] History of Present Illness: This is an 80-year-old white male with a history of COPD not on home oxygen, prior heart failure with preserved ejection fraction (by Echo done in September 2020 which also showed pulmonary hypertension with PA pressure 58 mmHg). He has HTN and is a smoker of 1 pack/day, was heavier previously. He was last admitted here September 2020 with a COPD exacerbation and leg edema, O2 saturation was 59% on room air at presentation then. Patient presents now with about 5 days of worsening leg edema and slowly progressively worsened shortness of breath and a chronic cough. He decided to drive himself to the emergency room today and reported that his "oxygen saturation was 57% on room air at home". In the ED, he was documented to have O2 saturation of 31% on room air. He was placed on supplemental oxygen via BiPAP. He refused to wear the BiPAP mask. His O2 saturation increased on nasal cannula at 4 L/min, up to the 95 to 100% range. Labs show BNP of 1100 (in September 2020 the BNP was 600), chest x-ray shows bilateral pleural effusions, CTA chest was done that showed no pulmonary embolism, and confirmed bilateral pleural effusions. His EKG shows right bundle branch block which is chronic. He is Covid neg. The ED provider reached out to the Hospitalist team for admission due to his markedly low oxygen desaturations, for treating a COPD exacerbation and CHF exacerbation. The patient said he would like to be a full code and would agree to intubation if needed. - HOSPITAL COURSE Hospital Course: (1) Acute respiratory failure with hypoxia and hypercapnia With his polycythemia (hemoglobin 18.5 and 19), it was obvious that he had longstanding hypoxic stimulation of bone marrow Red cell production. He also can tolerate saturations that are severely depressed at 30 to 50% and was still mentating and was not unconscious. A home oxygen order was needed in the past, but said he returned the oxygen to the company because he was not using it. Here we ordered supplemental oxygen via n.c., keeping saturations 88% or greater. We treated the 2 underlying problems causing desaturation, which appeared to be COPD exacerbation with probable bronchitis, and fluid overload with leg edema and pleural effusions. He underwent an oximetry walk study on day of discharge and did desaturate, required home O2 ordered and agreed to use it. (2) COPD exacerbation We treated the patient with inhaled steroids and IV steroids, bronchodilators via nebulizer and Singulair at bedtime, also Mucinex for pulmonary toilet and empiric Zithromax. He was discharged on new Combivent Respimat to use q.i.d., resume his previous inhalers, new Mucinex and got several more days of Zithromax . (3) Tobacco user We ordered a nicotine patch and strongly advised quitting. (4) Acute on chronic diastolic heart failure The last Echo was done September 2020 and showed LVEF normal. We started iv b.i.d. Lasix, continued with his usual cardiac medications, ordered a low salt diet. He had no further ankle edema. He was discharged on new Lasix, ordered to take on Sat, Sat, Fridays only due to pre-renal azotmia. (5) Pleural effusion This was also a sign of his volume overload and was also probably adding to his desaturations. We ordered IV twice daily diuretics. (6) Prerenal azotemia He presented with this from being on on a thiazide diuretic. Here his diuresis was with a loop diuretic and he remained pre-renal. (7) Poor short term memory He admitted that his memory has been worsening and that he is also "getting slower". We ordered PT and OT evaluations and then a referral for Home Health was ordered. - ALLERGIES Allergies/Adverse Reactions: Allergies Allergy/AdvReac Type Severity Reaction Status Date / Time No Known Drug Allergies Allergy Verified 06/28/21 11:47 - MEDICATIONS Home Medications: Ambulatory Orders Medication Instructions Recorded Confirmed Albuterol Sulf [Ventolin Hfa 1 - 2 puffs INH Q4HR PRN #18 gm 09/27/20 06/29/21 Inhaler] Cholecalciferol (Vitamin D3) 50 mcg PO DAILY 06/29/21 06/29/21 [Vitamin D3] Metoprolol Succinate [Toprol Xl] 25 mg PO DAILY 06/29/21 06/29/21 Nortriptyline HCl [Pamelor] 50 mg PO HS 06/29/21 06/29/21 Tamsulosin [Flomax] 0.8 mg PO DAILY 06/29/21 06/29/21 Azithromycin [Zithromax] 250 mg PO DAILY #3 tablet 06/30/21 Furosemide [Lasix] 20 mg PO MOWEFR #15 tablet 06/30/21 Ipratropium/Albuterol [Combivent 2 puffs IH QID #1 inh 06/30/21 Respimat] Losartan [Cozaar] 50 mg PO DAILY #30 tablet 06/30/21 guaiFENesin [Mucinex] 600 mg PO BID #10 tablet 06/30/21 - PHYSICAL EXAM AT DISCHARGE General Appearance: positive: No acute distress, Alert, Other (Elderly, cachectic and frail elderly white male) Eyes Bilateral: positive: Normal inspection ENT: positive: No signs of dehydration Neck: positive: Nml inspection Respiratory: positive: No respiratory distress (wearing O2 pern.c.), Other (Distant breath sounds but clear) Cardiovascular: positive: Regular rate & rhythm, No murmur Abdomen: positive: Non-tender, Nml bowel sounds, No distention Skin: positive: Warm, Dry Extremities: positive: Non-tender, No pedal edema Neurologic/Psychiatric: positive: Oriented x3 (Poor memory, non-focal motor exam) - LABS Result Diagrams: 06/30/21 05:29 06/30/21 05:29 - DIAGNOSTIC IMAGING Diagnostic Imaging Results: Final report reviewed - FOLLOW UP Follow Up: See PCP in 1-2 weeks for a hospital follow-up visit. - TIME SPENT Time Spent in Discharge (Minutes): 50
== END 2021-06-30 14:50 | disposition home health service (06) | DRG 189 ==
LOC: ED 11:28 → MS3 16:42 → MS2 06-29 23:58
PROVIDERS: ADMIT Internal Medicine; ATTEND Internal Medicine
DX: J96.91 Respiratory failure, unspecified with hypoxia (principal); J96.02 Acute respiratory failure with hypercapnia; I50.33 Acute on chronic diastolic (congestive) heart failure; J90 Pleural effusion, not elsewhere classified; J44.1 Chronic obstructive pulmonary disease with (acute) exacerbation; Z20.822 Contact with and (suspected) exposure to COVID-19; E87.2 Acidosis; J96.01 Acute respiratory failure with hypoxia; F17.210 Nicotine dependence, cigarettes, uncomplicated; I11.0 Hypertensive heart disease with heart failure; R79.89 Other specified abnormal findings of blood chemistry; R41.3 Other amnesia; I45.10 Unspecified right bundle-branch block; D75.1 Secondary polycythemia
CPT/HCPCS: 36415; 71045; 71275; 80048; 80053; 82607; 82746; 82803; 83690; 83735; 83880; 84484; 85025; 87633; 93005; 94640; 94761; 96374; 97161; 97165; 99285; 99291; A9270; J1650; J7626; Q9967

== ENCOUNTER 2021-06-30 14:33 | Outpatient (CLI) | payer MEDICARE ==
--- NOTE | 2021-07-01 21:29 | XRAY Report ---
PROCEDURE: Abdomen 1 View X-Ray INDICATIONS: NEPHROLTHIASIS TECHNIQUE: One view of the abdomen acquired. COMPARISON: Correlation is made with CT, 06/12/2021 FINDINGS: Surgical changes and devices: None. Bowel: Bowel gas pattern is normal. Soft tissues: There is again seen an oblong stone within the left proximal ureter that measures up t o 1 cm on this study. There is also a nonobstructing stone at the inferior pole the right kidney arabella ures 4 to 5 mm. Visualized solid organ contours appear normal in size. Bones: No suspicious bony lesions. Age-appropriate degenerative changes are seen, including involvi ng both hips. Mild to moderate levoconvex scoliosis is seen. IMPRESSION: Stable obstructing stone seen within the left proximal ureter, which is similar to the prior CT. Stable 4 to 5 mm nonobstructing stone at the inferior pole of the right kidney. Reviewed by: Jos West MD on 07/01/2021 8:27 PM ARIS Approved by: Jos West MD on 07/01/2021 8:27 PM ARIS Station ID: [id number]
== END 2021-06-30 14:34 | disposition home or self-care (01) ==
LOC: DI 14:33
PROVIDERS: ATTEND Urology
DX: N20.2 Calculus of kidney with calculus of ureter (principal)

== ENCOUNTER 2021-10-20 06:52 | Outpatient (CLI) | payer MEDICARE ==
[2021-10-20 07:34] LABS: CREATININE 0.8 mg/dL (0.6-1.2)
--- NOTE | 2021-10-20 13:09 | CT Report ---
PROCEDURE: Abdomen/Pelvis WO INDICATIONS: NEPHROLITHIASIS TECHNIQUE: Noncontrast 5 mm thick sections acquired from the diaphragms to the symphysis. 5 mm coronal and sagi ttal reformats were then performed. For radiation dose reduction, the following was used: automated exposure control, adjustment of mA and/or kV according to patient size. COMPARISON: 06/12/2021, 04/16/2014. FINDINGS: Image quality: Excellent. ABDOMEN: Lung bases: Lung bases are clear. Heart size is normal. Solid organs: Liver and spleen are normal in size. Gallbladder is within normal limits. Pancreas i s normal in contours. No adrenal nodules. Kidneys are normal in size. Nonobstructing stones are seen in bilateral kidneys measures up to 5 mm i n size in mid pole of right kidney and 6 mm in size in lower pole of left kidney. There is interval p lacement of a left-sided ureteral stent, the proximal end of the stent is seen within proximal ureter approximately 2.5 cm from left UPJ. There is mild to moderate left-sided hydronephrosis. 4 mm stone is seen in proximal left ureter/UPJ. 10 mm stone is seen in more distal portion of left proximal uret er just above the proximal end of left ureteral stent. This stone measures 1300 Hounsfield units in d ensity. Bilateral renal cysts are seen unchanged from prior study. No right-sided hydronephrosis or h ydroureter. Peritoneum and bowel: Unenhanced bowel loops demonstrate normal wall thickness and caliber. No free fluid or air. Fecal stasis throughout the colon is seen. Colonic diverticulosis is also seen with b owel clonic wall thickening or mesenteric fat stranding. Nodes and vessels: No retroperitoneal or mesenteric adenopathy by size criteria. Aorta and inferior vena cava are normal in caliber. Moderate atherosclerotic disease throughout abdominal aorta and bi lateral iliac arteries are seen. Miscellaneous: No ventral hernias. PELVIS: Genitourinary: Bladder wall thickness is normal. Miscellaneous: No inguinal hernias or adenopathy. Bones: No suspicious bony lesions. No vertebral body compression fractures. Moderate levoscoliosis of lumbar spine is seen centered at L2 level. Degenerative endplate changes throughout lower thoraci c and lumbar spine is seen. IMPRESSION: 1. Interval placement of a left-sided ureteral stent with upper portion of left ureteral stent seen i n proximal ureter approximately 2.5 cm distal to left UPJ. 2. Interval distal migration of previously noted 10 mm left UPJ stone, now situated just above the pr oximal end of the stent. Mild to moderate left-sided hydronephrosis and proximal hydroureter. [address] one seen in left proximal ureter/UPJ. 3. Bilateral renal cysts unchanged from prior study. Bilateral nonobstructing renal calculi also unch anged from prior study. No right-sided hydronephrosis or hydroureter. Normal-appearing urinary bladde r. 4. Constipation unchanged from prior study. No bowel obstruction. No free fluid or free air. Reviewed by: Km Rachel MD on 10/20/2021 1:08 PM PDT Approved by: Km Rachel MD on 10/20/2021 1:08 PM PDT Station ID: [id number]
== END 2021-10-20 06:53 | disposition home or self-care (01) ==
LOC: DI 06:52
PROVIDERS: ATTEND Urology
DX: Z96.0 Presence of urogenital implants (principal); N13.2 Hydronephrosis with renal and ureteral calculous obstruction; N28.1 Cyst of kidney, acquired; K59.00 Constipation, unspecified
CPT/HCPCS: 36415; 82565; 84520

== ENCOUNTER 2022-02-13 09:34 | Outpatient (CLI) | payer MEDICARE ==
[2022-02-13] MEDS ORDERED: iohexoL-300 100 ML VIAL ONE (09:38)
[2022-02-13 10:13] LABS: CREATININE 0.8 mg/dL (0.6-1.2)
[2022-02-13] MEDS ORDERED: iohexoL-300 100 ML VIAL IVP ONE (10:46)
--- NOTE | 2022-02-14 21:29 | CT Report ---
PROCEDURE: IVP INDICATIONS: URETERAL CA CONTRAST: 140ml Omnipaque 300 TECHNIQUE: After the administration of intravenous contrast, 5 mm thick sections acquired from the diaphragms to the symphysis. 5 mm thick coronal and sagittal reformats were acquired. For radiation dose reducti on, the following was used: automated exposure control, adjustment of mA and/or kV according to noble ent size. COMPARISON: 10/20/2021 and 06/12/2021 FINDINGS: Image quality: Diagnostic. Lung bases: Lung bases are clear. Heart size is normal. Conclusion Urinary system: Multiple bilateral renal stones are again noted. Some are somewhat linear in appeara nce which is favored to represent multiple layering tiny renal stones. 3 mm proximal right ureteral s tone, 4 mm distal right ureteral stone, and a 3 mm distal right ureteral stone at the right ureterove sicular junction. There is associated minimal right hydroureter and mild right renal pelvic fullness. No tiffany hydronephrosis seen. No perinephric stranding. Similar findings are noted on the left. No l eft-sided ureteral stone. No left-sided hydroureteronephrosis. No left-sided perinephric or periurete ral stranding. There is a 6 mm urinary bladder stone noted in the dependent portion of the bladder me asuring approximately 970 Hounsfield units. Layering hyperdense material is noted adjacent to this ur inary bladder stone, likely representing numerous layering tiny bladder stones. No evidence of abnorm al urinary bladder wall thickening or perivesicular inflammation. No evidence to suggest abnormal uri nary bladder wall thickness or suspicious intraluminal filling defect. Both kidneys demonstrate sadaf l size and cortical enhancement with numerous bilateral renal hypodensities. Largest on the right carlo sures approximately 3.8 cm in size and demonstrates no enhancement after contrast administration. Thi s is seen in the upper pole of the right kidney. On the left, multiple cortical and partially exophyt ic renal hypodensities are again noted. Largest is seen in the lower pole posteriorly measuring appro ximately 2.3 cm in size and demonstrates no enhancement post contrast administration. All the other m easurable left-sided renal hypodensities also demonstrate no enhancement with the exception of questi onable/borderline enhancement of a medial interpolar hypodensity measuring 1.4 cm in diameter. This i s best visualized on coronal image 92/series 9. Contrast-filled renal calyces are normal in morpholog y. No findings to suspect urothelial abnormalities. Contrast filled portions of both ureters are norm al in caliber. Bladder wall thickness is normal. Solid organs: Liver and spleen are normal in size and enhancement. Redemonstration of hepatic hypode nsity in the left hepatic lobe likely representing a cyst or hemangioma. Gallbladder is normally dist ended. The abdomen Biliary system is non dilated. Pancreas enhances normally. No adrenal nodules. Peritoneum and bowel: Bowel loops demonstrate normal wall thickness and caliber. No free fluid or a ir. Moderate amount of fecal material seen in the colon. Nodes and vessels: No retroperitoneal or mesenteric adenopathy by size criteria. Aorta and inferior vena cava are normal in size. Extensive atherosclerotic calcifications of the pulmonary aorta and i liac arteries. Abdominal wall: No ventral hernias. Pelvis: No pathologic free pelvic fluid. No inguinal hernias or adenopathy. Prominent prostate gla nd with coarse prostatic calcifications. Bones: No suspicious bony lesions. No acute vertebral body compression fractures. Moderate multilev el spondylosis of the imaged spine. IMPRESSION: 1. Redemonstration of multiple bilateral renal stones with mild right-sided hydroureteronephrosis sec ondary to multiple ureteral stones measuring between 3 and 4 mm in size. One is noted at the right ur eterovesicular junction. There are also urinary bladder stones measuring up to 6 mm in size. 2. Multiple bilateral renal hypodensities redemonstrated which appear stable in number, size and dist ribution. Essentially all of the hypodensities demonstrate no enhancement after administration of con trast. However, questionable/borline enhancement of a left kidney medial, interpolar hypodensity arabella uring 1.4 cm in diameter. No other suspicious features identified within this hypodensity. Recommend close attention on follow-up imaging. Otherwise, no suspicious renal abnormalities identifi ed. 3. No suspicious urothelial abnormalities identified in the imaged portions of the upper and lower re nal collecting system. 4. Other chronic findings as above. Reviewed by: Sukhwinder Ricketts MD on 02/14/2022 9:28 PM PST Approved by: Sukhwinder Ricketts MD on 02/14/2022 9:28 PM PST Station ID: [id number]
== END 2022-02-13 09:35 | disposition home or self-care (01) ==
LOC: LAB 09:34
PROVIDERS: ATTEND Urology
DX: C66.1 Malignant neoplasm of right ureter (principal); N13.2 Hydronephrosis with renal and ureteral calculous obstruction; N21.0 Calculus in bladder
CPT/HCPCS: 36415; 74178; 82565; Q9967

== ENCOUNTER 2022-08-09 06:09 | Day surgery (SDC) | payer MEDICARE ==
[~2022-08-09 06:09] MED LIST changes: +CYCLOPENTOLATE 1% OPHTH DROPS 2 ML ONE; +KETOROLAC 0.45% OPHTH DROPS ONE; +PHENYLEPHRINE 2.5% OPHTH 2 ML DROPS ONE; +PROPARACAINE 0.5% OPHTH DROPS 15 ML ONE; -methylPREDNISolone SUCCINATE 40 MG/ML VIAL IVP SCH
[2022-08-09] MEDS ORDERED: LACTATED RINGERS 1,000 ML IV ONE ×2 (06:37→07:56)
--- NOTE | 2022-08-09 06:47 | ANESTHESIA ---
Pre-Anesthesia VS, & Labs - Diagnosis L senile combined cataract - Procedure L extraction cataract wIOL Vital Signs: Temp Pulse Resp BP Pulse Ox O2 Flow Rate 36.9 C 82 20 151/78 H 94 2 08/09/22 06:27 08/09/22 06:27 08/09/22 06:27 08/09/22 06:27 08/09/22 06:27 08/09/22 06:27 Height: 5 ft 11 in Weight (kg): 62.3 kg Body Mass Index: 19.1 BMI Classification: Normal - NPO >8 hours - Lab Results Lab results reviewed: Yes Home Medications and Allergies Home Medications: Ambulatory Orders amLODIPine [Norvasc] 5 mg PO DAILY 08/08/22 Metoprolol Succinate [Toprol Xl] 25 mg PO DAILY 06/29/21 amLODIPine [Norvasc] 5 mg PO DAILY 08/08/22 Allergies/Adverse Reactions: Allergies Allergy/AdvReac Type Severity Reaction Status Date / Time No Known Drug Allergies Allergy Verified 06/28/21 11:47 Anes History & Medical History - Anesthetic History Anesthesia Complications: reports: No previous complications Family history of Anesthesia Complications: Denies Family history of Malignant Hyperthermia: Denies - Medical History Cardiovascular: reports: Congestive heart failure, Hypertension, Murmur Pulmonary: reports: None, COPD, Shortness of breath Gastrointestinal: reports: None Urinary: reports: Other Musculoskeletal: reports: None Endocrine/Autoimmune: reports: None Skin: reports: None Smoking Status: Current every day smoker - Surgical History General: reports: Colonoscopy, Other Urologic: reports: Bladder surgery Orthopedic: reports: Knee replacement Dermatologic: reports: Skin cancer surgery Exam General: Alert, Oriented x3 Dental: Loose/Frag Mouth Openin Fingerbreadth Neck Mobility: Normal Mallampati classification: II Respiratory: Decreased breath sounds, Crackles, Wheezing, Other (o2 dependent at home. 2L, sat 80s without o2 upon arrival) Cardiovascular: Regular rate Neurological: Normal speech Mental/Cognitive Status: Alert/Oriented X3, Normal for patient Cognitive Status: Within normal limits Plan Anesthesia Type: MAC Consent for Procedure(s) Verified and Reviewed: Yes Code Status: Attempt Resuscitation ASA classification: 3-Severe systemic disease Is this case an emergency?: No
[2022-08-09] MEDS ORDERED: MIDAZOLAM 2 MG/2 ML VIAL ONE (07:03)
[2022-08-09] MEDS ORDERED: EPINEPHrine 1 MG/ML AMP ONE (07:04)
[2022-08-09] MEDS ORDERED: TRIAMCIN/MOXIFLOX OPHTHALMIC 0.6 ML VIAL IO ONE ×2 (07:04→07:36)
[2022-08-09] MEDS ORDERED: TIMOLOL 0.5% OPHTH DROPS ONE (07:05)
[2022-08-09] MEDS ORDERED: VANCOMYCIN OPHTH (TOPICAL) 10 MG/ML SYRINGE ONE (07:05)
[2022-08-09] MEDS ORDERED: BRIMONIDINE 0.2% OPHTH DROPS 5 ML ONE (07:05)
[2022-08-09] MEDS ORDERED: BSS/LIDOCAINE/EPINEPHRINE 1 ML VIAL ONE (07:05)
[2022-08-09] MEDS ORDERED: BRIMONIDINE 0.2% OPHTH DROPS 5 ML OPTH ONE (07:35)
[2022-08-09] MEDS ORDERED: EPINEPHrine 1 MG/ML AMP IR ONE (07:35)
[2022-08-09] MEDS ORDERED: BSS/LIDOCAINE/EPINEPHRINE 1 ML SYRINGE IO ONE (07:36)
[2022-08-09] MEDS ORDERED: TIMOLOL 0.5% OPHTH DROPS OPTH ONE (07:36)
[2022-08-09] MEDS ORDERED: VANCOMYCIN OPHTH (TOPICAL) 10 MG/ML SYRINGE TOP ONE (07:37)
[2022-08-09] MEDS ORDERED: PROPARACAINE 0.5% OPHTH DROPS 15 ML EACHEYE ONE (07:37)
--- NOTE | 2022-08-09 08:10 | OPERATIVE REPORT ---
Operative Report - Other Other Information/Narrative: Date of Surgery: Preop Dx: Complex, visually significant cataract left eye. Complex due to small pupil requiring mechanical dilation using a Malyugin ring. This was the first cataract surgery. Postop Dx: Same Procedure: Phacoemulsification with posterior chamber intraocular lens implant left eye Surgeon: Dr. Karsten Benitez Anesthesia: Monitored anesthesia care Complications: None Operative Indications: This is a 81-year-old M with progressive vision loss in the left eye due to 4+ nuclear sclerotic and 2-3+ posterior subcapsular cataract. Best corrected visual acuity was 20/300 with glare to light perception vision in the left eye. Indications for surgery were: - Overall decrease in vision - Difficulty seeing words on a computer screen - Difficulty reading - Difficulty seeing words, closed captions, or game scores on TV - Difficulty seeing street signs - Difficulty driving in low light or at night - Difficulty driving at night because of headlights from other vehicles - Difficulty with glare or bright lights in any situation - Difficulty tracking a golf ball The patient was consented at length concerning the risks and benefits of cataract surgery after which the patient expressed a desire to proceed with surgery. Operative Procedure: The patient was taken into OR#3 and placed under monitored anesthesia care. A surgical time-out was conducted confirming correct patient, correct procedure, and correct surgical site. The patient was given topical anesthesia and then prepped and draped in the usual sterile fashion. The eye was entered at the 6 and 3 oclock positions. Intracameral Shugarcaine was injected into the anterior chamber followed by a dispersive viscoelastic. A Malyugin ring was injected into the anterior chamber and engaged with the pupillary margin at four points to expand the pupil. A continuous-tear curvilinear capsulorhexis was performed. The nucleus was hydrodissected and phacoemulsified. This was a very large, dense crytalline lens which would not prolapse through the pupil and Malyugin ring. The cortex was evacuated using automated infusion and aspiration. A cohesive viscoelastic was injected into the capsular bag and a 15.0 diopter intraocular lens was inserted into the bag. The Malyugin ring was disengaged from the pupillary margin and removed from the anterior chamber. Infusion and aspiration were used to evacuate the viscoelastic materials from the eye. The wounds were hydrated and the eye inflated to physiologic pressure using balanced salt solution. Approximately 0.25ml of a mixture of triamcinolone and moxifloxacin was injected trans-sclerally into the vitreous in the inferotemporal quadrant using a 30 gauge cannula. An additional 0.25ml of a mixture of triamcinoloneand moxifloxacin was injected subconjunctivally in the superior quadrant for infection and inflammation prophylaxis. Wound integrity was checked with Weck-Marjorie sponges and the wound found to be leaking. A 10-0 suture was placed across the wound to seal the wound. The patient was taken from the operating room in good condition and given post-op instructions.
--- NOTE | 2022-08-09 08:13 | ANESTHESIA POST OP EVALUATION ---
Anesthesia Post Eval - Post Anesthesia Eval Vitals: Last Vital Signs Temp 36.5 C 08/09/22 07:56 Pulse 79 08/09/22 07:56 Resp 16 08/09/22 07:56 BP 130/71 08/09/22 07:56 Pulse Ox 100 08/09/22 07:56 O2 Flow Rate 2 08/09/22 06:27 CV Function Including HR & BP: Stable Pain Control: Satisfactory Nausea & Vomiting: Negative Mental Status: Baseline Respiratory Status: Airway Patent Hydration Status: Satisfactory Anesthesia Complications: None
[2022-08-09 08:27] VITALS: BP 129/78
== END 2022-08-09 06:10 | disposition home or self-care (01) ==
LOC: SDS 06:09
PROVIDERS: ATTEND Ophthalmology
DX: H25.812 Combined forms of age-related cataract, left eye (principal); I11.0 Hypertensive heart disease with heart failure; I50.9 Heart failure, unspecified; J44.9 Chronic obstructive pulmonary disease, unspecified; F17.200 Nicotine dependence, unspecified, uncomplicated
CPT/HCPCS: 66984; A9270; J3490; J7120

== ENCOUNTER 2022-09-20 06:48 | Day surgery (SDC) | payer MEDICARE ==
--- NOTE | 2022-09-20 06:58 | ANESTHESIA ---
Pre-Anesthesia VS, & Labs - Diagnosis R nuclear cataract - Procedure R extraction cataract w/IOL Height: 5 ft 11 in - NPO >8 hours - Lab Results Lab results reviewed: No Home Medications and Allergies Metoprolol Succinate [Toprol Xl] 25 mg PO DAILY 06/29/21 amLODIPine [Norvasc] 5 mg PO DAILY 08/08/22 Allergies/Adverse Reactions: Allergies Allergy/AdvReac Type Severity Reaction Status Date / Time No Known Drug Allergies Allergy Verified 06/28/21 11:47 Anes History & Medical History - Anesthetic History Anesthesia Complications: reports: No previous complications Family history of Anesthesia Complications: Denies Family history of Malignant Hyperthermia: Denies - Medical History Cardiovascular: reports: Congestive heart failure, Hypertension, Murmur Pulmonary: reports: None, COPD, Shortness of breath, Other (home O2) Gastrointestinal: reports: None Urinary: reports: Other Musculoskeletal: reports: None Endocrine/Autoimmune: reports: None Skin: reports: None Smoking Status: Current every day smoker History of Cancer?: No - Surgical History General: reports: Colonoscopy, Other Urologic: reports: Bladder surgery Orthopedic: reports: Knee replacement Dermatologic: reports: Skin cancer surgery Exam General: Alert, Oriented x3, Cooperative Dental: Loose/Frag, Poor dentition Mouth Openin Fingerbreadth Neck Mobility: Normal Mallampati classification: II Thyromental Distance: 4-6 cm Respiratory: Lungs clear, Normal breath sounds, No respiratory distress Cardiovascular: Regular rate Plan Anesthesia Type: MAC Consent for Procedure(s) Verified and Reviewed: Yes Code Status: Attempt Resuscitation ASA classification: 3-Severe systemic disease Is this case an emergency?: No
[2022-09-20] MEDS ORDERED: LACTATED RINGERS 1,000 ML IV ONE ×2 (07:17→08:27)
[2022-09-20] MEDS ORDERED: MIDAZOLAM 2 MG/2 ML VIAL ONE (07:40)
[2022-09-20] MEDS ORDERED: TRIAMCIN/MOXIFLOX OPHTHALMIC 0.6 ML VIAL IO ONE ×2 (07:45→08:05)
[2022-09-20] MEDS ORDERED: EPINEPHrine 1 MG/ML AMP ONE (07:45)
[2022-09-20] MEDS ORDERED: TIMOLOL 0.5% OPHTH DROPS ONE (07:45)
[2022-09-20] MEDS ORDERED: BRIMONIDINE 0.2% OPHTH DROPS 5 ML ONE (07:45)
[2022-09-20] MEDS ORDERED: BSS/LIDOCAINE/EPINEPHRINE 1 ML VIAL ONE (07:45)
[2022-09-20] MEDS ORDERED: TIMOLOL 0.5% OPHTH DROPS OPTH ONE (08:04)
[2022-09-20] MEDS ORDERED: BSS/LIDOCAINE/EPINEPHRINE 1 ML SYRINGE IO ONE (08:04)
[2022-09-20] MEDS ORDERED: BRIMONIDINE 0.2% OPHTH DROPS 5 ML OPTH ONE (08:04)
[2022-09-20] MEDS ORDERED: EPINEPHrine 1 MG/ML AMP IR ONE (08:04)
[2022-09-20] MEDS ORDERED: PROPARACAINE 0.5% OPHTH DROPS 15 ML EACHEYE ONE (08:05)
[2022-09-20] MEDS ORDERED: VANCOMYCIN OPHTH (TOPICAL) 10 MG/ML SYRINGE TOP ONE (08:05)
--- NOTE | 2022-09-20 08:36 | OPERATIVE REPORT ---
Operative Report - Other Other Information/Narrative: Date of Surgery: 09/20/22 Preop Dx: Complex, visually significant cataract right eye. Complex due to small pupil requiring mechanical dilation using a Malyugin ring. Cataract surgery was performed in the left eye on . Postop Dx: Same Procedure: Phacoemulsification with posterior chamber intraocular lens implant right eye Surgeon: Dr. Karsten eBnitez Anesthesia: Monitored anesthesia care Complications: None Operative Indications: This is a 81-year-old M with progressive vision loss in the right eye due to 4+ nuclear sclerotic and 1+ posterior subcapsular cataract. Best corrected visual acuity was 20/300 with glare to light perception vision in the right eye. Indications for surgery were: - Overall decrease in vision - Difficulty seeing words on a computer screen - Difficulty reading - Difficulty seeing words, closed captions, or game scores on TV - Difficulty seeing street signs - Difficulty driving in low light or at night - Difficulty driving at night because of headlights from other vehicles - Difficulty with glare or bright lights in any situation - Difficulty tracking a golf ball - Decreased acuity with firearms The patient was consented at length concerning the risks and benefits of cataract surgery after which the patient expressed a desire to proceed with surgery. Operative Procedure: The patient was taken into OR#3 and placed under monitored anesthesia care. A surgical time-out was conducted confirming correct patient, correct procedure, and correct surgical site. The patient was given topical anesthesia and then prepped and draped in the usual sterile fashion. The eye was entered at the 6 and 3 oclock positions. Intracameral Shugarcaine was injected into the anterior chamber followed by a dispersive viscoelastic. A Malyugin ring was injected into the anterior chamber and engaged with the pupillary margin at four points to expand the pupil. A continuous-tear curvilinear capsulorhexis was performed. The nucleus was hydrodissected and phacoemulsified. This was a huge, and very dense, cataract that would not prolapse through the dilated pupil. Manipulation was difficult. The cortex was evacuated using automated infusion and aspiration. A cohesive viscoelastic was injected into the capsular bag and a 15.5 diopter intraocular lens was inserted into the bag. The Malyugin ring was disengaged from the pupillary margin and removed from the anterior chamber. Infusion and aspiration were used to evacuate the viscoelastic materials from the eye. The wounds were hydrated and the eye inflated to physiologic pressure using balanced salt solution. Approximately 0.25ml of a mixture of triamcinolone and moxifloxacin was injected trans- sclerally into the vitreous in the inferotemporal quadrant using a 30 gauge cannula. An additional 0.55ml of a mixture of triamcinolone and moxifloxacin was injected subconjunctivally in the superior quadrant for infection and inflammation prophylaxis. Wound integrity was checked with Weck-Marjorie sponges but the eye remained soft after repeated re-inflation, so a 10-0 suture was placed across the wound. Normal IOP was then maintained. The patient was taken from the operating room in good condition and given post-op instructions.
--- NOTE | 2022-09-20 08:45 | ANESTHESIA POST OP EVALUATION ---
Anesthesia Post Eval - Post Anesthesia Eval Vitals: Last Vital Signs Temp 36.8 C 09/20/22 08:27 Pulse 76 09/20/22 08:27 Resp 14 09/20/22 08:27 BP 141/73 H 09/20/22 08:27 Pulse Ox 98 09/20/22 08:27 O2 Flow Rate 2 09/20/22 07:04 CV Function Including HR & BP: Stable Pain Control: Satisfactory Nausea & Vomiting: Negative Mental Status: Baseline Respiratory Status: Airway Patent Hydration Status: Satisfactory Anesthesia Complications: None
[2022-09-20 09:08] VITALS: BP 120/57; O2SAT 100
== END 2022-09-20 06:49 | disposition home or self-care (01) ==
LOC: SDS 06:48
PROVIDERS: ATTEND Ophthalmology
DX: H25.811 Combined forms of age-related cataract, right eye (principal); I11.0 Hypertensive heart disease with heart failure; I50.9 Heart failure, unspecified; J44.9 Chronic obstructive pulmonary disease, unspecified; F17.200 Nicotine dependence, unspecified, uncomplicated
CPT/HCPCS: 66984; A9270; J3490; J7120; V2787